=== PATIENT | female | born 1950 | race Caucasian/White ===

== ENCOUNTER 2019-05-01 19:40 | Inpatient (IN) | payer OTHER ==
[~2019-05-01] VITALS: Ht 162.6 cm; Wt 102.7 kg
[~2019-05-01 19:40] MED LIST: ACET325 PO; ALBU90I INH; ALIS150T PO; ALPR.5 PO; AMIO200 PO; ASCO1ER PO; ASCO500 PO; ASPI325 PO; ASPI325EC PO; ATOR10 PO; ATOR80 PO; AZIT250; BUME2 PO; Bumetanide1 MG PO; CALC.25 PO; CALCAVITD PO; CALCIT950; CALCIT950 PO; CALCIUM CITRATE; CAPT12.5 PO; CEPH500 PO; CHOL10002 PO; CIPR500 PO; CITA20 PO; CLOP75 PO; CYCL10 PO; Coumadin3 MG PO; Coumadin5 MG PO; DIGOX125 MCG PO; DILT60 PO; DIPH50 PO; DOCU100 PO; DRON400T PO; Desyrel50 MG; EZET10; FERR160 PO; FLUO20 PO; FURO20 PO; FURO40 PO; Ferrous Sulfat325 M2 PO; GLIP5 PO; HYDACE10B PO; HYDACE5 PO; HYDACE5325 PO; HYDCHL12.5 PO; INSDET100; IRON150C PO; LEVFLO500 PO; LOPE2C PO; LOSA50 PO; LOVA40 PO; Lomotil Tablet1 EACH PO; Lyrica225 MG PO; MAGOXI400 PO; METF500 PO; METF500C PO; METH10 PO; METH5 PO; METO50 PO; METO50ER PO; MULTI VITAMIN1 EACH PO; MULTIVITAMIN; MULVITB&C PO; NITR.4SL SL; NITR.6SL SL; NORT25 PO; OLME20 PO; OMEP20ER PO; ONDA4ODT MM; OXYACE5T PO; OXYC1TAB11 PO; OXYC5; OXYC5 PO; Oxycontin20 MG PO; PANT40 PO; POTCHL10ER PO; PRED20 PO; PREG100 PO; PROACE100 PO; PROP120ER; PROP80 PO; Percocet 10-321 EACH PO; RANI150 PO; ROSU10TA; RXHYDACE PO; RXOXYACE PO; RXPROACE PO; SITA100T2 PO; Seroquel50 MG PO; Super B Comple150 MG PO; TELM80; TELM80 PO; TRIA80TC TOP; VIIBRYD40 MG PO; VILAZODONE 40 MG; VITAMIN D31 ML; VITB100; WARF1 PO; WARF4 PO; WARF5 PO; [UNRECOGNIZED DRUG - OTHER]
[2019-05-01 20:14] LABS: BASOPHILS ABSOLUTE AUTO 0.02 K/mm3 (0.00-0.23); BASOPHILS PERCENT AUTO 0 % (0-2); EOSINOPHILS ABSOLUTE AUTO 0.04 K/mm3 (0.00-0.68); EOSINOPHILS PERCENT AUTO 1 % (0-6); Hematocrit 44.1 % (33.0-51.0); Hemoglobin 14.2 g/dL (11.5-16.0); IMMATURE GRAN ABSOLUTE AUTO 0.03 K/mm3 (0.00-0.10); IMMATURE GRAN PERCENT AUTO 0 % (0-1); LYMPHOCYTES ABSOLUTE AUTO 0.33 K/mm3 (0.84-5.20); LYMPHOCYTES PERCENT AUTO 4 % (21-46); MONOCYTES ABSOLUTE AUTO 0.44 K/mm3 (0.16-1.47); MONOCYTES PERCENT AUTO 6 % (4-13); Mean Corpuscular HGB 28.7 pg (26.0-34.0); Mean Corpuscular HGB Conc 32.2 g/dL (31.5-36.5); Mean Corpuscular Volume 89 fL (80-100); Mean Platelet Volume 10.8 fL (9.1-12.4); NEUTROPHILS ABSOLUTE AUTO 6.58 K/mm3 (1.96-9.15); NEUTROPHILS PERCENT AUTO 89 % (41-73); Platelet Count 147 K/mm3 (150-400); RDW Coefficient Variation 13.2 % (11.7-14.2); RDW Standard Deviation 43.2 fL (35.1-46.3); Red Blood Cell Count 4.95 M/mm3 (3.80-5.20); White Blood Cell Count 7.44 K/mm3 (4.00-11.30)
[2019-05-01 20:27] LABS: Albumin, Blood 3.6 g/dL (3.4-5.0); Albumin/Globulin Ratio 0.8 (0.8-1.8); Bun/Creatinine Ratio 22.5 (12.0-20.0); Calcium, Blood 8.6 mg/dL (8.5-10.1); Creatinine, Blood 1.11 mg/dL (0.40-1.00); Globulin, Blood 4.5 g/dL (2.2-4.0); Potassium, Blood 4.2 mmol/L (3.5-5.5); Total Protein, Blood 8.1 g/dL (6.4-8.2)
[2019-05-01 20:30] LABS: International Normalized Ratio 1.81; Prothrombin Time Results 18.2 Sec (9.7-11.5)
[2019-05-01 21:41] LABS: Source, Urine Catheter
[2019-05-01 21:46] LABS: Bilirubin, Urine Neg (Neg); Blood, Urine Neg (Neg); Glucose Qualitative, Urine Neg (Neg); Ketones, Urine Neg (Neg); Leukocyte Esterase, Urine 1+ (Neg); Nitrite, Urine Neg (Neg); Protein, Urine 1+ (Neg); Urobilinogen, Urine 2+ (Normal)
[2019-05-01 21:54] LABS: Appearance, Urine Clear (Clear); Color, Urine Yellow (P-Yellow)
[2019-05-01 21:57] LABS: Bacteria Few /hpf; Red Blood Cells, Urine 0-2 /hpf (0-2); Squamous Epithelial Cells Mod /hpf (Few)
[2019-05-01 22:44] LABS: Digoxin (Lanoxin) 0.81 ug/mL (0.80-2.00)
--- NOTE | 2019-05-02 02:00 | NUR ---
ADMIT/ASSESSMENT PT ADMITTED VIA ER TO ICU 15. ARRIVED VIA GURNEY. AWAKE, A&O. TRANSFERED TO BED BY STAFF WITH SLIDER SHEET. PT DENEIS PAIN OR DISCOMFORT. TO BEDSIDE. PT ANSWERING QUESTIONS APPROP. JUANEW. SKIN WARM, TEMP 102.0. LUNGS CLEAR BUT DECREASED IN THE BASES ON 10 LITERS O2 VIA OXMIZER. HEART RATE IRREGULAR-AFIB. PT HAS A PACEMAKER. EDEMA NOTED TO BILAT LOWER EXT. BT+ ABD SOFT AND NONTENDER. DENIES N/V. PT STATES,"I WANT SOMTHING TO DRINK". EXPLAINED NPO. IV 20G TO LEFT AC SALINE LOCKED, SITE CLEAR. IV 20G TO RIGHT FOREARM SALINE LOCKED, SITE CLEAR. MONTENEGRO CATH PATENT DRAINING DARK YELLOW URINE. PT MOVING SELF AROUND IN BED. SCD'S APPLIED.
[2019-05-02] MEDS ORDERED: QUET100 PO (02:19)
[2019-05-02 02:52] LABS: U Amphetamine Screen Not Detected; U Barbituate Screen Not Detected; U Benzodiazapine Screen Not Detected; U Buprenorphine Screen Not Detected; U Cannabinoids Screen Not Detected; U Cocaine Screen Not Detected; U Methadone Screen Not Detected; U Methamphetamine Screen Not Detected; U Opiates Screen Not Detected; U Oxycodone Screen DETECTED; U Phencyclidine Screen Not Detected; U Propoxyphene Screen Not Detected
[2019-05-02 03:35] LABS: Hematocrit 42.3 % (33.0-51.0); Hemoglobin 13.2 g/dL (11.5-16.0); Mean Corpuscular HGB 28.1 pg (26.0-34.0); Mean Corpuscular HGB Conc 31.2 g/dL (31.5-36.5); Mean Corpuscular Volume 90 fL (80-100); Mean Platelet Volume 10.7 fL (9.1-12.4); Platelet Count 138 K/mm3 (150-400); RDW Coefficient Variation 13.5 % (11.7-14.2); RDW Standard Deviation 44.1 fL (35.1-46.3); Red Blood Cell Count 4.69 M/mm3 (3.80-5.20); White Blood Cell Count 10.85 K/mm3 (4.00-11.30)
--- NOTE | 2019-05-02 03:49 | NUR ---
PT REFUSING BIPAP. RT DECREASED O2 VIA OXMIZER TO 8 LITERS
[2019-05-02 03:53] LABS: International Normalized Ratio 1.97; Prothrombin Time Results 19.6 Sec (9.7-11.5)
[2019-05-02 03:55] LABS: Albumin/Globulin Ratio 0.8 (0.8-1.8); Bilirubin, Total 1.7 mg/dL (0.1-1.0); Bun/Creatinine Ratio 20.7 (12.0-20.0); Calcium, Blood 8.1 mg/dL (8.5-10.1); Creatinine, Blood 1.11 mg/dL (0.40-1.00); Globulin, Blood 3.9 g/dL (2.2-4.0); Potassium, Blood 4.2 mmol/L (3.5-5.5); Total Protein, Blood 6.9 g/dL (6.4-8.2)
[2019-05-02 04:09] LABS: BAND PERCENT MAN 15 % (0-8); BASOPHILS PERCENT MAN 0 % (0-2); EOSINOPHILS PERCENT MAN 0 % (0-6); LYMPHOCYTES ABSOLUTE MAN 0.32 K/mm3 (0.84-5.20); LYMPHOCYTES PERCENT MAN 3 % (21-46); METAMYELOCYTE PERCENT MAN 1 % (0-0); MONOCYTES ABSOLUTE MAN 0.75 K/mm3 (0.16-1.47); MONOCYTES PERCENT MAN 7 % (4-13); NEUTROPHILS ABSOLUTE MAN 9.65 K/mm3 (1.96-9.15); SEG NEUTROPHILS PERCENT MAN 74 % (41-73); TOTAL CELLS COUNTED 100
--- NOTE | 2019-05-02 06:21 | NUR ---
SHIFT SUMMARY PT ADMITTED DURING THE NIGHT. REFUSING BIPAP ON 8 LITER O2 VIA OXMIZER. RESP EVEN AND NONLABORED. RECEIVED ONE LITER BOLUS HERE IN THE ICU. NOW ON NS AT 100 ML/HR. MOVING SELF AROUND IN BED. TMAX WAS 102.0 NOW DOWN TO 100.8 AFTER TYLENOL. REPORT TO ON COMING NURSE
[2019-05-02 06:48] LABS: Adenovirus Not Detected (NOT DETECT); Bordetella pertussis Not Detected (NOT DETECT); Chlamydophila pneumoniae Not Detected (NOT DETECT); Coronavirus 229E Not Detected (NOT DETECT); Coronavirus HKU1 Not Detected (NOT DETECT); Coronavirus NL63 Not Detected (NOT DETECT); Coronavirus OC43 Not Detected (NOT DETECT); Human Metapneumovirus Not Detected (NOT DETECT); Human Rhinovirus/Enterovirus Not Detected (NOT DETECT); Influenza A Not Detected (NOT DETECT); Influenza A/2009-H1 Not Detected (NOT DETECT); Influenza A/H1 Not Detected (NOT DETECT); Influenza A/H3 Not Detected (NOT DETECT); Influenza B Not Detected (NOT DETECT); Mycoplasma pneumoniae Not Detected (NOT DETECT); Parainfluenza Virus 1 Not Detected (NOT DETECT); Parainfluenza Virus 2 Not Detected (NOT DETECT); Parainfluenza Virus 3 Not Detected (NOT DETECT); Parainfluenza Virus 4 Not Detected (NOT DETECT); Respiratory Syncytial Virus Not Detected (NOT DETECT)
--- NOTE | 2019-05-02 07:15 | NUR ---
START OF SHIFT NOTE: RECEIVED REPORT FROM JOAN BOGGS RN, ASSUMED CARE, PATIENT IS AWAKE, ALERT AND ORIENTED, ON 7L OXIMYZER SATING AT 96 %, PATIENT IS IN A-FIB WITH OCCASIONAL PACER SPIKES, PATIENT HAS A PPM, LUNG SOUNDS ARE DIMINISHED AND CONGESTED, BOWEL TONES ARE HYPOACTIVE, MONTENEGRO CATHETER WITH TEMP PROBE IN PLACE, PATIENT DENIES PAIN, REPORTS NO CHEST PAIN/DISCOMFORT OF SOB AT THIS TIME, CALL LIGHT IN REACH, WILL CONTINUE TO MONITOR.
--- NOTE | 2019-05-02 08:25 | NUR ---
DR. ZHOU IN TO SEE PATIENT, NEW ORDERS RECEIVED.
--- NOTE | 2019-05-02 09:30 | NUR ---
VISITOR AT BEDSIDE, PATIENT IS RESTING COMFORTABLY, NO NEEDS IDENTIFIED AT THIS TIME, CALL LIGHT IN REACH, WILL CONTINUE TO MONITOR.
--- NOTE | 2019-05-02 13:21 | NUR ---
PATIENT IS SLEEPING AT THIS TIME, AT BEDSIDE, ALSO APPEARS TO TAKE A NAP, CALL LIGHT IN REACH, WILL CONTINUE TO MONITOR.
--- NOTE | 2019-05-02 14:19 | NUR ---
ATTEMPTED TO CALL REPORT TO PCU, SPOKE WITH UVALDO HOPPER, PAINT MAKER, SHE STATED THAT "SHE WILL HAVE MAYTE OATES CALL ME FOR REPORT".
--- NOTE | 2019-05-02 14:33 | NUR ---
REPORT CALLED TO MAYTE OATES RN, PCU, PATIENT WILL BE TRANSFERRED TO PCU ROOM 6 VIA WHEELCHAIR WITH ALL BELONGINGS AND MEDICATIONS.
--- NOTE | 2019-05-02 18:17 | NUR ---
SHIFT SUMMARY PT WAS TRANSFERRED THIS AFTERNOON TO [place] FROM ICU. UPON ARRIVAL PT HAD AN SP02 100% ON 7L OXYMIZER. I WAS ABLE TO WEAN PT DOWN TO 3L OXYMIZER TO MAINTAIN SP02 >92%. ALSO UPON ARRIVAL, PT HAD A LARGE, HARD BOWEL MOVEMENT. PT REMAINS A-FIB ON TELEMETRY. VITALS HAVE BEEN STABLE AND PT HAS BEEN ALERT AND ORIENTED FOR ME.
--- NOTE | 2019-05-02 23:57 | NUR ---
ASSUMED CARE OF PATIENT AT APPROXIMATELY 1910 FROM NARCISA Gustafson RN. PATIENT ALERT AND ORIENTED X4; SLOW TO RESPOND AT TIMES. PATIENT DENIES PAIN, NUMBNESS, TINGLING, DIZZINESS OR NAUSEA. PATIENT REPOSISTIONS SELF IN BED; HAS NOT AMBULATED THIS SHIFT. AFIB W/ PACED ON TELE; OXYGEN SATURATION ABOVE 90% ON 1-2LPM VIA NC; SWITCHED FROM OXYMIZER. PATIENT REFUSES CPAP; REPORTS SHE WAS SUPPPOSE TO WEAR ONE AT HOME. PATIENT REPORTS LARGE HARD BM BEFORE SHIFT CHANGE; NO ORDERS FOR COLACE; DISCUSSED WITH PATIENT; CALLED ANGEL CAMPOVERDE; ORDERS RECIEVED. PIV S/L. SLEEPING IN RECLINER BEDSIDE. PATIENT CURRENTLY RESTING IN BED; CALL LIGHT IN REACH; BED IN LOWEST POSISTION; BED ALARM ON; WILL CONTINUE TO MONITOR AND ASSESS UNTIL END OF SHIFT.
[2019-05-03 04:00] LABS: Albumin, Blood 2.7 g/dL (3.4-5.0); Albumin/Globulin Ratio 0.7 (0.8-1.8); Bilirubin, Total 1.9 mg/dL (0.1-1.0); Bun/Creatinine Ratio 17.9 (12.0-20.0); Calcium, Blood 8.3 mg/dL (8.5-10.1); Creatinine, Blood 1.06 mg/dL (0.40-1.00); Globulin, Blood 3.7 g/dL (2.2-4.0); Potassium, Blood 4.3 mmol/L (3.5-5.5); Total Protein, Blood 6.4 g/dL (6.4-8.2)
[2019-05-03 04:05] LABS: International Normalized Ratio 2.08; Prothrombin Time Results 20.6 Sec (9.7-11.5)
--- NOTE | 2019-05-03 06:16 | NUR ---
PATIENT TITRATED DOWN TO 1LPM VIA NC; TRIED TRIAL WITH NO OXYGEN; DROPS TO HIGH 80 (~85%) AND BOUNCES QUICKLY BACK UP TO 90-92%; PATIENT REPORTS "THIS HAPPENED TO ME BEFORE"; "I WAS IN THE HOSPITAL FOR FIVE DAYS". VSS. PATIENT SLEPT ABOUT EIGHT HOURS LAST NIGHT; STAYED BEDSIDE. HEART RATE TRENDING AT 100. WILL CONTINUE TO MONITOR AND ASSESS UNTIL END OF SHIFT.
--- NOTE | 2019-05-03 13:17 | NUR ---
PT TRANSFERRED TO ROOM 355. REPORT CALLED TO HARRY BENITO. ALL QUESTIONS ANSWERED. BELONGINGS GATHERED AND SENT WITH PT AND . PT SPECIFIC MEDS GATHERED AND PLACED IN GREEN MEDICINE BAG WITH CHART. PT LEFT THE DEPARTMENT VIA W/C ON ROOM AIR, ESCORTED BY PCT AND FAMILY.
--- NOTE | 2019-05-03 17:08 | NUR ---
PATIENT IS ALERT AND ORIENTED AND COOPERATIVE WITH CARE. SHE CALLS APPROPRIATELY. SHE TRANSFERRED TO MEDICAL FROM PCU TODAY. FAMILY IS AT THE BEDSIDE. NO COMPLAINTS OF FEVER. SHE AMBULATES TO THE BATHROOM WITH SBA. WILL CONTINUE TO MONITOR.
--- NOTE | 2019-05-04 04:49 | NUR ---
SHIFT SUMMARY PT HAS DONE WELL THIS SHIFT. THERE HAVE BEEN NO ACUTE CHANGES, PT IS ALERT AND ORIENTED X4. PT GIVEN LASIKS YESTERDAY EVENING AND HAS BEEN VOIDING. PT DENIES PAIN OR NEEDS FOR MOST OF THE NIGHT. VITALS STABLE. PT SPOUSE AT BEDSIDE T/O THE NIGHT. BED IN LOWEST POSITION, CALL LIGHT WITHIN REACH. WILL CONTINUE TO MONITOR AND REPORT TO ONCOMING RN.
[2019-05-04 05:09] LABS: International Normalized Ratio 1.61; Prothrombin Time Results 16.3 Sec (9.7-11.5)
[2019-05-04 05:21] LABS: Anion Gap 6 mmol/L (6-16); Blood Urea Nitrogen 17 mg/dL (8-24); Bun/Creatinine Ratio 21.5 (12.0-20.0); CO2, Blood 31 mmol/L (21-32); Calcium, Blood 8.6 mg/dL (8.5-10.1); Chloride, Blood 102 mmol/L (98-108); Creatinine, Blood 0.79 mg/dL (0.40-1.00); Glomerular Filtration Rate >60 (60-); Glucose, Blood 149 mg/dL (70-99); Potassium, Blood 3.6 mmol/L (3.5-5.5); Sodium, Blood 139 mmol/L (136-145)
[2019-05-04] MEDS ORDERED: Vsl#3 Capsule1 EACH PO (11:06)
[2019-05-04] MEDS ORDERED: METF500 PO (11:07)
[2019-05-04] MEDS ORDERED: TORSE20 PO (11:08)
[2019-05-04] MEDS ORDERED: LEVFLO500 PO (11:09)
[2019-05-04] MEDS ORDERED: POTA10T PO (11:09)
--- NOTE | 2019-05-04 13:04 | NUR ---
Shift Summary A/O x 4, pleasant and cooperative with care. Pt discharging to home via personal vehicle. Reviewed discharge papers and provided educational materials to patient and . IV removed, WNL. Meds faxed to preferred pharmacy, personal belongings sent home. Escorted by BODY CLEANER via w/c.
== END 2019-05-04 12:15 | disposition home or self-care (01) | DRG 871 ==
LOC: ER 19:40 → ICUW 05-02 01:42 → PCU 05-02 14:53 → MEDS 05-03 13:30 → ENPENDDIS 05-04 10:03 → MEDS 05-04 12:15
PROVIDERS: Emergency Medicine; Internal Medicine; Nurse Practitioner Acute Care; ADMIT Internal Medicine
PROC: 5A09357 Assistance with Respiratory Ventilation, Less than 24 Consecutive Hours, Continuous Positive Airway Pressure (ICD-10-PCS; principal; 2019-05-02)
DX: A41.9 Sepsis, unspecified organism (principal); J18.9 Pneumonia, unspecified organism; G92 Toxic encephalopathy; J96.01 Acute respiratory failure with hypoxia; I50.33 Acute on chronic diastolic (congestive) heart failure; J44.0 Chronic obstructive pulmonary disease with (acute) lower respiratory infection; R65.20 Severe sepsis without septic shock; I11.0 Hypertensive heart disease with heart failure; I48.91 Unspecified atrial fibrillation; E11.9 Type 2 diabetes mellitus without complications; G47.33 Obstructive sleep apnea (adult) (pediatric); Z88.0 Allergy status to penicillin; Z98.84 Bariatric surgery status; Z79.01 Long term (current) use of anticoagulants; K80.20 Calculus of gallbladder without cholecystitis without obstruction; K76.0 Fatty (change of) liver, not elsewhere classified; Z91.19 Patient's noncompliance with other medical treatment and regimen; E78.5 Hyperlipidemia, unspecified; Z95.0 Presence of cardiac pacemaker; Z87.891 Personal history of nicotine dependence
CPT/HCPCS: 0099U; 36415; 51702; 70450; 71045; 76705; 80048; 80053; 80162; 81001; 82947; 83036; 83605; 83880; 85025; 85610; 85730; 87040; 87081; 87086; 93005; 93010; 94660; 94762; 96361-59; 96365-59; 96375-59; 96376-59; 99285-25; A9270; C9113; J0696; J1940; J7030; P9612

== ENCOUNTER 2020-04-06 16:25 | Observation (INO) | payer OTHER ==
[~2020-04-06] VITALS: Ht 165.1 cm; Wt 113.6 kg
[~2020-04-06 16:25] MED LIST changes: -CALC.25 PO; -DIGOX125 MCG PO; -Lyrica225 MG PO; -PANT40 PO; +QUET100 PO; +Vsl#3 Capsule1 EACH PO
[2020-04-06 17:09] LABS: BASOPHILS ABSOLUTE AUTO 0.03 K/mm3 (0.00-0.23); BASOPHILS PERCENT AUTO 0 % (0-2); EOSINOPHILS PERCENT AUTO 1 % (0-6); Hematocrit 32.7 % (33.0-51.0); Hemoglobin 10.3 g/dL (11.5-16.0); IMMATURE GRAN ABSOLUTE AUTO 0.12 K/mm3 (0.00-0.10); IMMATURE GRAN PERCENT AUTO 2 % (0-1); LYMPHOCYTES ABSOLUTE AUTO 0.55 K/mm3 (0.84-5.20); LYMPHOCYTES PERCENT AUTO 7 % (21-46); MONOCYTES ABSOLUTE AUTO 0.41 K/mm3 (0.16-1.47); MONOCYTES PERCENT AUTO 6 % (4-13); Mean Corpuscular HGB 28.4 pg (26.0-34.0); Mean Corpuscular HGB Conc 31.5 g/dL (31.5-36.5); Mean Corpuscular Volume 90 fL (80-100); NEUTROPHILS ABSOLUTE AUTO 6.25 K/mm3 (1.96-9.15); NEUTROPHILS PERCENT AUTO 84 % (41-73); Platelet Count 293 K/mm3 (150-400); RDW Standard Deviation 48.8 fL (35.1-46.3); Red Blood Cell Count 3.63 M/mm3 (3.80-5.20); White Blood Cell Count 7.46 K/mm3 (4.00-11.30)
[2020-04-06 17:23] LABS: International Normalized Ratio 1.43
[2020-04-06 17:31] LABS: Alanine Aminotransfer (ALT/SGP 47 U/L (12-78); Albumin, Blood 2.9 g/dL (3.4-5.0); Albumin/Globulin Ratio 0.7 (0.8-1.8); Alk Phos 417 U/L (50-136); Anion Gap 5 mmol/L (6-16); Aspartate Aminotrans (AST/SGOT 67 U/L (12-37); Bilirubin, Total 1.7 mg/dL (0.1-1.0); Blood Urea Nitrogen 10 mg/dL (8-24); Bun/Creatinine Ratio 14.6 (12.0-20.0); CO2, Blood 30 mmol/L (21-32); Calcium, Blood 8.8 mg/dL (8.5-10.1); Chloride, Blood 107 mmol/L (98-108); Creatinine, Blood 0.69 mg/dL (0.40-1.00); Globulin, Blood 3.9 g/dL (2.2-4.0); Glomerular Filtration Rate >60 (60-); Glucose, Blood 176 mg/dL (70-99); Potassium, Blood 4.7 mmol/L (3.5-5.5); Sodium, Blood 142 mmol/L (136-145); Total Protein, Blood 6.8 g/dL (6.4-8.2); Troponin I <0.015 ng/mL (0.000-0.040)
[2020-04-06] MEDS ORDERED: METF500 PO (20:59)
[2020-04-06] MEDS ORDERED: METO100 PO (21:00)
[2020-04-06] MEDS ORDERED: PAXIL40 M1 PO (21:01)
[2020-04-06] MEDS ORDERED: WARF5 PO (21:01)
[2020-04-06] MEDS ORDERED: PREG300 PO (21:02)
[2020-04-06] MEDS ORDERED: ATOR40TA PO (21:04)
[2020-04-06] MEDS ORDERED: Amaryl1 MG PO (21:04)
[2020-04-06] MEDS ORDERED: DIGOX125 MCG PO (21:06)
[2020-04-06] MEDS ORDERED: TORSE20 PO (21:06)
[2020-04-06] MEDS ORDERED: CALC.25 PO (21:07)
[2020-04-06] MEDS ORDERED: POTA10T PO (21:07)
[2020-04-06] MEDS ORDERED: PANT40 PO (21:08)
--- NOTE | 2020-04-07 00:11 | NUR ---
transfer report from [facility] on 69 year old Female being admitted with fluid overload hypoxia & Afib. neg ct pul angiogram, bnp elevated. hx chf afib low inr. SP recent cholecystectomy last Sat & rt knee replacement end of Feb 2020. 03/28/20 had ecoli in blood culture. Has dual lead pacemaker in place. Will be full code on tele monitor. Reoported on 2 l nc & has pur wick female external cath in place after diuretics given. Await admission.
--- NOTE | 2020-04-07 03:39 | NUR ---
DR RO called to request PT's home med list reconsilation. He verbalizes to resume current home med list. Await MD orders for home rx list. PT specifically asking for lyrica 300 mg po missed HS Dose.
[2020-04-07 05:17] LABS: BASOPHILS ABSOLUTE AUTO 0.03 K/mm3 (0.00-0.23); BASOPHILS PERCENT AUTO 1 % (0-2); EOSINOPHILS ABSOLUTE AUTO 0.08 K/mm3 (0.00-0.68); EOSINOPHILS PERCENT AUTO 2 % (0-6); Hematocrit 31.7 % (33.0-51.0); Hemoglobin 9.9 g/dL (11.5-16.0); IMMATURE GRAN ABSOLUTE AUTO 0.09 K/mm3 (0.00-0.10); IMMATURE GRAN PERCENT AUTO 2 % (0-1); LYMPHOCYTES ABSOLUTE AUTO 0.57 K/mm3 (0.84-5.20); LYMPHOCYTES PERCENT AUTO 11 % (21-46); MONOCYTES ABSOLUTE AUTO 0.41 K/mm3 (0.16-1.47); MONOCYTES PERCENT AUTO 8 % (4-13); Mean Corpuscular HGB 28.1 pg (26.0-34.0); Mean Corpuscular HGB Conc 31.2 g/dL (31.5-36.5); Mean Corpuscular Volume 90 fL (80-100); Mean Platelet Volume 10.2 fL (9.1-12.4); NEUTROPHILS ABSOLUTE AUTO 4.01 K/mm3 (1.96-9.15); NEUTROPHILS PERCENT AUTO 77 % (41-73); Platelet Count 277 K/mm3 (150-400); RDW Standard Deviation 48.3 fL (35.1-46.3); Red Blood Cell Count 3.52 M/mm3 (3.80-5.20); White Blood Cell Count 5.19 K/mm3 (4.00-11.30)
[2020-04-07 05:50] LABS: Alanine Aminotransfer (ALT/SGP 40 U/L (12-78); Albumin, Blood 2.9 g/dL (3.4-5.0); Albumin/Globulin Ratio 0.8 (0.8-1.8); Alk Phos 364 U/L (50-136); Anion Gap 5 mmol/L (6-16); Aspartate Aminotrans (AST/SGOT 27 U/L (12-37); Bilirubin, Total 1.5 mg/dL (0.1-1.0); Blood Urea Nitrogen 11 mg/dL (8-24); Bun/Creatinine Ratio 15.6 (12.0-20.0); CO2, Blood 34 mmol/L (21-32); Calcium, Blood 8.8 mg/dL (8.5-10.1); Chloride, Blood 101 mmol/L (98-108); Globulin, Blood 3.7 g/dL (2.2-4.0); Glomerular Filtration Rate >60 (60-); Glucose, Blood 175 mg/dL (70-99); Sodium, Blood 140 mmol/L (136-145); Total Protein, Blood 6.6 g/dL (6.4-8.2)
[2020-04-07 06:44] LABS: Digoxin (Lanoxin) 0.67 ug/mL (0.80-2.00)
--- NOTE | 2020-04-07 06:44 | NUR ---
PT up to BSC this AM to void & needed moderate assist & FWW to mobilize, Needs cues for safe mobility. PT drank water has cardiac diet ordered for BF. Drained over 1250 ml via external female cath. PT has chronic neropathic pain on lyrica to tx. ROCCO RO RX PT's home meds to begin this AM.
[2020-04-07] MEDS ORDERED: ROXICODONE5 MG PO (08:39)
--- NOTE | 2020-04-07 12:45 | NUR ---
PT PACEMAKER CHECKED PER HOSPITALIST ORDER, PRINTOUT PLACED IN FRONT OF CHART, WILL ROUTE REPORT THRU PACEDAYANARA/BRENA TO DR CAMARGO
[2020-04-07 13:27] LABS: Source, Urine Catheter
[2020-04-07 13:30] LABS: Appearance, Urine Clear (Clear); Bilirubin, Urine Neg (Neg); Blood, Urine Neg (Neg); Color, Urine Yellow (P-Yellow); Glucose Qualitative, Urine Neg (Neg); Ketones, Urine Neg (Neg); Leukocyte Esterase, Urine Neg (Neg); Nitrite, Urine Neg (Neg); Protein, Urine Neg (Neg); Specific Gravity, Urine 1.005 (1.003-1.022); Urobilinogen, Urine NORM (Normal)
--- NOTE | 2020-04-07 16:47 | NUR ---
SHIFT SUMMARY- PT A/OX4, PT UP TO CHAIR WITH 1 ASSIST. LS CLEAR, ON 2L N/C. SOB WITH EXERTION AND OCCASIONAL NPC. COVID NEGATIVE. TELE AFIB AT 95, PACER INTERROGATED TODAY. MONTENEGRO PLACED PER DR JAIN FOR STRICT I&O. PT WITH RECENT RIGHT KNEE REPLACEMENT AND CHOLECYSTECTOMY, SITES C/D/I. NO OTHER ACUTE CHANGES THIS SHIFT.
--- NOTE | 2020-04-08 03:50 | NUR ---
69 year old Female with pacemaker dual chamber, afib partially paced had 2 recent surgeries & was off anticoagulant to control afib. INR was subtheraputic & PT was fluid overloaded & had hypoxia, with dyspnea. PT had rt total knee replacement 03/22/20 & lap rm 04/03/2020. PT had poor mobility s/p rt knee replacement due to cholecystitis & positive blood culture with ecoli growth on 03/28/2020. PT recieving IV diuretics & Hospitalist had ordered wallace cath to facilitate diuresis. Chronic neuropathic pain on high dose lyrica 300 mg po BID with helpful effect, denies operative site pains in abd or rt knee. Has PT eval ordered had PT ordered but unable to start due to illness with rm following. Up to chair for dinner, has HS snack. Has supportive Spouse. Pacemaker interrogated & reprogrammed yesterday report in chart. Tele monitor shows intermittant pacing.
[2020-04-08 05:22] LABS: BASOPHILS ABSOLUTE AUTO 0.03 K/mm3 (0.00-0.23); BASOPHILS PERCENT AUTO 1 % (0-2); EOSINOPHILS ABSOLUTE AUTO 0.17 K/mm3 (0.00-0.68); EOSINOPHILS PERCENT AUTO 4 % (0-6); Hematocrit 32.7 % (33.0-51.0); Hemoglobin 9.9 g/dL (11.5-16.0); IMMATURE GRAN ABSOLUTE AUTO 0.04 K/mm3 (0.00-0.10); IMMATURE GRAN PERCENT AUTO 1 % (0-1); LYMPHOCYTES ABSOLUTE AUTO 0.69 K/mm3 (0.84-5.20); LYMPHOCYTES PERCENT AUTO 15 % (21-46); MONOCYTES ABSOLUTE AUTO 0.47 K/mm3 (0.16-1.47); MONOCYTES PERCENT AUTO 10 % (4-13); Mean Corpuscular HGB 27.7 pg (26.0-34.0); Mean Corpuscular HGB Conc 30.3 g/dL (31.5-36.5); Mean Corpuscular Volume 91 fL (80-100); Mean Platelet Volume 10.4 fL (9.1-12.4); NEUTROPHILS ABSOLUTE AUTO 3.23 K/mm3 (1.96-9.15); NEUTROPHILS PERCENT AUTO 70 % (41-73); Platelet Count 289 K/mm3 (150-400); RDW Coefficient Variation 14.8 % (11.7-14.2); RDW Standard Deviation 49.1 fL (35.1-46.3); Red Blood Cell Count 3.58 M/mm3 (3.80-5.20); White Blood Cell Count 4.63 K/mm3 (4.00-11.30)
[2020-04-08 05:24] LABS: International Normalized Ratio 1.23
[2020-04-08 05:32] LABS: Anion Gap 2 mmol/L (6-16); Blood Urea Nitrogen 16 mg/dL (8-24); Bun/Creatinine Ratio 21.1 (12.0-20.0); CO2, Blood 36 mmol/L (21-32); Chloride, Blood 102 mmol/L (98-108); Creatinine, Blood 0.76 mg/dL (0.40-1.00); Glomerular Filtration Rate >60 (60-); Glucose, Blood 158 mg/dL (70-99); Potassium, Blood 4.1 mmol/L (3.5-5.5); Sodium, Blood 140 mmol/L (136-145)
--- NOTE | 2020-04-08 13:12 | NUR ---
DISCHARGE INSTRUCTIONS REVIEWED WITH PT AND SPOUSE. IV DC'D AND MONTENEGRO DC'D BY RN STUDENT. NO NEW PRESCRIPTIONS. PT HAS AN APPT WITH OUTPATIENT THERAPY TOMORROW AND SCHEDULED APPT WITH PCP ON THE . AWAITING PT TO VOID POST MONTENEGRO DC AT THIS TIME.
--- NOTE | 2020-04-08 13:13 | NUR ---
PT GAVE STUDENT NURSE PERMISSION FOR CARE ON 04/08/20 AT 1250.
--- NOTE | 2020-04-08 13:48 | NUR ---
PT DC'D HOME WITH SPOUSE AT 1336, ESCORTED OUT VIA W/C.
== END 2020-04-08 13:36 | disposition home or self-care (01) ==
LOC: ER 16:25 → MEDS 16:26
PROVIDERS: Internal Medicine; Physician Assistant; ADMIT Internal Medicine
DX: I11.0 Hypertensive heart disease with heart failure (principal); I50.33 Acute on chronic diastolic (congestive) heart failure; J96.01 Acute respiratory failure with hypoxia; I48.91 Unspecified atrial fibrillation; E11.9 Type 2 diabetes mellitus without complications; E78.5 Hyperlipidemia, unspecified; M54.9 Dorsalgia, unspecified; J44.9 Chronic obstructive pulmonary disease, unspecified; M19.90 Unspecified osteoarthritis, unspecified site; G47.33 Obstructive sleep apnea (adult) (pediatric); Z88.0 Allergy status to penicillin; Z88.1 Allergy status to other antibiotic agents; Z87.891 Personal history of nicotine dependence; Z95.0 Presence of cardiac pacemaker; Z90.49 Acquired absence of other specified parts of digestive tract; Z88.8 Allergy status to other drugs, medicaments and biological substances; Z79.01 Long term (current) use of anticoagulants; Z79.84 Long term (current) use of oral hypoglycemic drugs; Z79.899 Other long term (current) drug therapy; Z20.828 Contact with and (suspected) exposure to other viral communicable diseases; Z23 Encounter for immunization
CPT/HCPCS: 36415; 51702; 71046; 71260; 80048; 80053; 80162; 81003; 83690; 83880; 84484; 85025; 85610; 93005; 93010; 93280; 93306; 93971; 94640; 96372; 96374-59; 96376; 97110; 97116; 97162; 99285-25; A9270-GY; G0378; J1650; J1940; Q9967; U0004

== ENCOUNTER 2020-07-31 17:46 | Inpatient (IN) | payer OTHER, MEDICARE ==
[~2020-07-31] VITALS: Ht 157.5 cm; Wt 111.7 kg
[~2020-07-31 17:46] MED LIST changes: +ATOR40TA PO; +Amaryl1 MG PO; +CALC.25 PO; +LANOXIN125 MCG PO; +METO100 PO; +PANT40 PO; +PAXIL40 M1 PO; +POTA10T PO; +PREG300 PO; +ROXICODONE5 MG PO; +TORSE20 PO
[2020-07-31 18:38] LABS: BASOPHILS ABSOLUTE AUTO 0.03 K/mm3 (0.00-0.23); BASOPHILS PERCENT AUTO 0 % (0-2); EOSINOPHILS ABSOLUTE AUTO 0.04 K/mm3 (0.00-0.68); EOSINOPHILS PERCENT AUTO 0 % (0-6); Hematocrit 37.8 % (33.0-51.0); Hemoglobin 12.1 g/dL (11.5-16.0); IMMATURE GRAN ABSOLUTE AUTO 0.04 K/mm3 (0.00-0.10); IMMATURE GRAN PERCENT AUTO 0 % (0-1); LYMPHOCYTES ABSOLUTE AUTO 0.95 K/mm3 (0.84-5.20); LYMPHOCYTES PERCENT AUTO 10 % (21-46); MONOCYTES ABSOLUTE AUTO 0.68 K/mm3 (0.16-1.47); MONOCYTES PERCENT AUTO 7 % (4-13); Mean Corpuscular HGB 27.9 pg (26.0-34.0); Mean Corpuscular Volume 87 fL (80-100); Mean Platelet Volume 11.1 fL (9.1-12.4); NEUTROPHILS ABSOLUTE AUTO 7.47 K/mm3 (1.96-9.15); NEUTROPHILS PERCENT AUTO 81 % (41-73); Platelet Count 164 K/mm3 (150-400); RDW Coefficient Variation 16.6 % (11.7-14.2); RDW Standard Deviation 52.4 fL (35.1-46.3); Red Blood Cell Count 4.34 M/mm3 (3.80-5.20); White Blood Cell Count 9.21 K/mm3 (4.00-11.30)
[2020-07-31 18:56] LABS: Alanine Aminotransfer (ALT/SGP 27 U/L (12-78); Albumin, Blood 3.5 g/dL (3.4-5.0); Albumin/Globulin Ratio 0.8 (0.8-1.8); Alk Phos 121 U/L (50-136); Anion Gap 5 mmol/L (6-16); Aspartate Aminotrans (AST/SGOT 20 U/L (12-37); Bilirubin, Total 2.3 mg/dL (0.1-1.0); Blood Urea Nitrogen 15 mg/dL (8-24); Bun/Creatinine Ratio 16.8 (12.0-20.0); CO2, Blood 29 mmol/L (21-32); Calcium, Blood 8.9 mg/dL (8.5-10.1); Chloride, Blood 103 mmol/L (98-108); Creatinine, Blood 0.89 mg/dL (0.40-1.00); Globulin, Blood 4.4 g/dL (2.2-4.0); Glomerular Filtration Rate >60 (60-); Glucose, Blood 211 mg/dL (70-99); Potassium, Blood 4.2 mmol/L (3.5-5.5); Sodium, Blood 137 mmol/L (136-145); Total Protein, Blood 7.9 g/dL (6.4-8.2)
[2020-07-31 18:57] LABS: International Normalized Ratio 2.19; Prothrombin Time Results 22.4 Sec (9.7-11.5)
[2020-07-31 19:01] LABS: Source, Urine Catheter
[2020-07-31 19:04] LABS: Appearance, Urine Clear (Clear); Bilirubin, Urine Neg (Neg); Blood, Urine Neg (Neg); Color, Urine Yellow (P-Yellow); Glucose Qualitative, Urine 1+ (Neg); Ketones, Urine Neg (Neg); Leukocyte Esterase, Urine 1+ (Neg); Nitrite, Urine Neg (Neg); Protein, Urine 3+ (Neg); Urobilinogen, Urine 3+ (Normal)
[2020-07-31 19:11] LABS: Bacteria Few /hpf; Red Blood Cells, Urine Not Seen /hpf (0-2); Squamous Epithelial Cells Few /hpf (Few)
[2020-07-31 19:12] LABS: Influenza A, PCR NEGATIVE (NEGATIVE); Influenza B, PCR NEGATIVE (NEGATIVE); Resp Syncytial Virus, PCR NEGATIVE (NEGATIVE); SARS-Cov-2 (COVID-19) PCR, MMC NEGATIVE (NEGATIVE)
[2020-07-31] MEDS ORDERED: METFORMIN HCL1000 M6 PO (22:16)
[2020-07-31] MEDS ORDERED: THERA-D2000 UNIT PO (22:56)
[2020-08-01 00:42] LABS: Source, Urine Catheter
[2020-08-01 00:44] LABS: Bilirubin, Urine Neg (Neg); Blood, Urine Neg (Neg); Glucose Qualitative, Urine Neg (Neg); Ketones, Urine Neg (Neg); Leukocyte Esterase, Urine Neg (Neg); Nitrite, Urine Neg (Neg); Protein, Urine 1+ (Neg); Urobilinogen, Urine NORM (Normal)
[2020-08-01 00:46] LABS: Appearance, Urine Clear (Clear); Color, Urine Yellow (P-Yellow)
[2020-08-01 03:49] LABS: BASOPHILS ABSOLUTE AUTO 0.02 K/mm3 (0.00-0.23); BASOPHILS PERCENT AUTO 0 % (0-2); EOSINOPHILS PERCENT AUTO 0 % (0-6); Hemoglobin 11.5 g/dL (11.5-16.0); IMMATURE GRAN ABSOLUTE AUTO 0.04 K/mm3 (0.00-0.10); IMMATURE GRAN PERCENT AUTO 1 % (0-1); LYMPHOCYTES ABSOLUTE AUTO 0.35 K/mm3 (0.84-5.20); LYMPHOCYTES PERCENT AUTO 5 % (21-46); MONOCYTES ABSOLUTE AUTO 0.22 K/mm3 (0.16-1.47); MONOCYTES PERCENT AUTO 3 % (4-13); Mean Corpuscular HGB 27.3 pg (26.0-34.0); Mean Corpuscular HGB Conc 31.9 g/dL (31.5-36.5); Mean Corpuscular Volume 86 fL (80-100); Mean Platelet Volume 10.8 fL (9.1-12.4); NEUTROPHILS ABSOLUTE AUTO 5.96 K/mm3 (1.96-9.15); NEUTROPHILS PERCENT AUTO 91 % (41-73); Platelet Count 142 K/mm3 (150-400); RDW Coefficient Variation 16.3 % (11.7-14.2); RDW Standard Deviation 50.4 fL (35.1-46.3); Red Blood Cell Count 4.21 M/mm3 (3.80-5.20); White Blood Cell Count 6.59 K/mm3 (4.00-11.30)
[2020-08-01 04:03] LABS: International Normalized Ratio 2.03; Prothrombin Time Results 20.9 Sec (9.7-11.5)
[2020-08-01 04:04] LABS: Anion Gap 5 mmol/L (6-16); Blood Urea Nitrogen 14 mg/dL (8-24); CO2, Blood 31 mmol/L (21-32); Calcium, Blood 8.4 mg/dL (8.5-10.1); Chloride, Blood 103 mmol/L (98-108); Creatinine, Blood 0.88 mg/dL (0.40-1.00); Glomerular Filtration Rate >60 (60-); Glucose, Blood 281 mg/dL (70-99); Sodium, Blood 139 mmol/L (136-145)
--- NOTE | 2020-08-01 05:02 | NUR ---
REASSESSMENT PT RESTING, SNORING. WAKES TO VOICE, REMAINS ON 10L HIFLOW N/C. NO MONI ROSS IN PLACE DRAIING MEIR LE. VITALS STABLE.
--- NOTE | 2020-08-01 07:30 | NUR ---
PT AWAKENED FOR BLOOD SUGAR, ANSWERING QUESTIONS APPROPRIATELY, DENIES ANY COMPLAINTS. PT ON 10L HIFL NC, AFIB W/ PVC'S, LUNGS COARSE WITH LLL WHEEZE ON EXP. BOWEL TONES+, MONTENEGRO DRAINING CLEAR YELLOW, PEDAL PULSES FAINT, NO EDEMA.
--- NOTE | 2020-08-01 08:30 | NUR ---
IN TO AWAKE AND MEDICATE PATIENT, OFFER HER BREAKFAST. PT STATES SHE'S NOT HUNGRY. AWAKENS TO HAVE CONVERSATION WITH THIS RN, STATES SHE FEELS WELL, COUGH PRESENT, MOIST/PRODUCTIVE. STATES SHE HAS HAD A COUGH OF THIS NATURE FOR ALMOST A YEAR, RELATED IT TO ALLERGIES. SHE IS CONCERNED IF HER TEST COMES BACK POSITIVE, WHAT HAPPENS THEN. WE DISCUSSED HER ANTIBIOTIC THERAPY AND HER ANTIVIRALS, HOW THE REPORTING WORKS, WHO GETS CONTACTED. QUESTIONS ANSWERED TO HER SATISFACTION.
--- NOTE | 2020-08-01 16:37 | NUR ---
MORA LIM HAS BEEN RESTING MOST OF THE DAY, SHE IS ENGAGING AND TALKATIVE WHEN I GO IN THE ROOM, BUT WILL REST QUIETLY ON 10L/NC WHILE I AM AWAY. SHE HAS EATEN FAIRLY WELL TODAY, REFUSED BREAKFAST AND ATE HALF HER LUNCH, HER LUNGS HAVE BEEN COARSE AND CLEAR WITH COUGH. HER SPUTUM IS NOW TINGED WITH BLOOD, THIN CLEAR. HER MONTENEGRO CONT TO DRAIN TO GRAVITY WITH CLEAR YELLOW RETURN. UP TO BSC WITH LARGE BM, FAIRLY STEADY ON HER FEET, SBA WITH ONE ARM. SHE IS ABLE TO POSITION HERSELF IN BED NEEDED. HER CBG'S HAVE STEADILY DECREASED T/O THE DAY AND IS CURRENTLY AT 94. PT'S WAS IN, VISITED IN PPE. MADE AWARE OF THE TRANSFER TO PCU 7 THIS EVENING.
--- NOTE | 2020-08-01 18:39 | NUR ---
SHIFT SUMMARY/PT TRANFER PT TRANSFERRED TO UNIT AT END OF SHIFT FROM ICU. PT ALERT AND ORIENTED X 4. VS STABLE. OXYGEN SATURATION MAINTAINED ABOVE 94% ON 10 L OF OXYGEN VIA HIGH FLOW NC. NO CP OR PRESSURE REPORTED. WILL CONTINUE TO MONITOR UNTIL REPORT GIVEN TO NIGHTSHIFT RN.
[2020-08-02 03:53] LABS: Bicarbonate Venous 29.3 mmol/L (24.0-30.0); PCO2 Venous 51.4 mmHg (38-42); PO2 Venous 35.6 mmHg (38-42)
[2020-08-02 04:12] LABS: BASOPHILS ABSOLUTE AUTO 0.01 K/mm3 (0.00-0.23); BASOPHILS PERCENT AUTO 0 % (0-2); EOSINOPHILS ABSOLUTE AUTO 0.08 K/mm3 (0.00-0.68); EOSINOPHILS PERCENT AUTO 1 % (0-6); Hematocrit 32.9 % (33.0-51.0); Hemoglobin 10.2 g/dL (11.5-16.0); IMMATURE GRAN ABSOLUTE AUTO 0.02 K/mm3 (0.00-0.10); IMMATURE GRAN PERCENT AUTO 0 % (0-1); LYMPHOCYTES PERCENT AUTO 11 % (21-46); MONOCYTES ABSOLUTE AUTO 0.47 K/mm3 (0.16-1.47); MONOCYTES PERCENT AUTO 8 % (4-13); Mean Corpuscular HGB 26.9 pg (26.0-34.0); Mean Corpuscular Volume 87 fL (80-100); Mean Platelet Volume 10.7 fL (9.1-12.4); NEUTROPHILS ABSOLUTE AUTO 4.84 K/mm3 (1.96-9.15); NEUTROPHILS PERCENT AUTO 79 % (41-73); Platelet Count 164 K/mm3 (150-400); RDW Coefficient Variation 16.3 % (11.7-14.2); RDW Standard Deviation 51.6 fL (35.1-46.3); Red Blood Cell Count 3.79 M/mm3 (3.80-5.20); White Blood Cell Count 6.12 K/mm3 (4.00-11.30)
[2020-08-02 04:28] LABS: D-Dimer, Quantitative 0.68 mg/L FEU (0.00-0.52); International Normalized Ratio 1.98; Prothrombin Time Results 20.4 Sec (9.7-11.5)
[2020-08-02 04:35] LABS: Calcium, Blood 8.7 mg/dL (8.5-10.1)
--- NOTE | 2020-08-02 05:28 | NUR ---
SHIFT SUMMARY PATIENT IS ALERT AND ORIENTED. REPOSITIONED NEEDED, PATIENT ABLE TO REPSOTION SELF. MONTENEGRO IN PLACE AND DRAINING. PATIENT ON 10L VIA HIGH FLOW NC AT START OF SHIFT 02 SATS 97-100%, PATIENT CURRENTLY ON 4L NC, 02 SATS 94-95%. VSS, NO ACUTE CHANGES. ELEVATED D-DIMER CALLED TO HOSPITALIST. CALL LIGHT IN REACH.
--- NOTE | 2020-08-02 18:08 | NUR ---
SHIFT SUMMARY PT ALERT AND ORIENTED. VS STABLE. 02 SATS REMAIN ABOVE 90% ON 2L NC. BP STABLE. HR AFIB 70'S. PT DENIES ANY PAIN. MONTENEGRO PATENT AND DRAINING CLEAR YELLOW URINE. PT ABLE TO AMBULATE WITH SBA. WILL CONTINUE TO MONITOR AND REPORT TO ONCOMING RN. CALL LIGHT IN REACH. PT CALLING APPROPRIATELY.
[2020-08-03 04:15] LABS: BASOPHILS ABSOLUTE AUTO 0.01 K/mm3 (0.00-0.23); BASOPHILS PERCENT AUTO 0 % (0-2); EOSINOPHILS ABSOLUTE AUTO 0.04 K/mm3 (0.00-0.68); EOSINOPHILS PERCENT AUTO 1 % (0-6); Hemoglobin 9.8 g/dL (11.5-16.0); IMMATURE GRAN ABSOLUTE AUTO 0.02 K/mm3 (0.00-0.10); IMMATURE GRAN PERCENT AUTO 0 % (0-1); LYMPHOCYTES ABSOLUTE AUTO 0.79 K/mm3 (0.84-5.20); LYMPHOCYTES PERCENT AUTO 14 % (21-46); MONOCYTES ABSOLUTE AUTO 0.47 K/mm3 (0.16-1.47); MONOCYTES PERCENT AUTO 8 % (4-13); Mean Corpuscular HGB 27.5 pg (26.0-34.0); Mean Corpuscular HGB Conc 31.6 g/dL (31.5-36.5); Mean Corpuscular Volume 87 fL (80-100); Mean Platelet Volume 10.7 fL (9.1-12.4); NEUTROPHILS ABSOLUTE AUTO 4.51 K/mm3 (1.96-9.15); NEUTROPHILS PERCENT AUTO 77 % (41-73); Platelet Count 174 K/mm3 (150-400); RDW Standard Deviation 50.9 fL (35.1-46.3); Red Blood Cell Count 3.57 M/mm3 (3.80-5.20); White Blood Cell Count 5.84 K/mm3 (4.00-11.30)
[2020-08-03 04:35] LABS: International Normalized Ratio 2.03; Prothrombin Time Results 20.9 Sec (9.7-11.5)
[2020-08-03 04:41] LABS: Albumin, Blood 2.7 g/dL (3.4-5.0); Anion Gap 6 mmol/L (6-16); Blood Urea Nitrogen 26 mg/dL (8-24); Bun/Creatinine Ratio 24.5 (12.0-20.0); CO2, Blood 29 mmol/L (21-32); Calcium, Blood 8.7 mg/dL (8.5-10.1); Chloride, Blood 108 mmol/L (98-108); Creatinine, Blood 1.06 mg/dL (0.40-1.00); Glomerular Filtration Rate 55 (60-); Glucose, Blood 115 mg/dL (70-99); Phosphorus, Blood 3.4 mg/dL (2.5-4.9); Potassium, Blood 4.4 mmol/L (3.5-5.5); Sodium, Blood 143 mmol/L (136-145)
--- NOTE | 2020-08-03 06:05 | NUR ---
SHIFT SUMMARY NO ACUTE CHANGES THIS SHIFT. PT A&OX4. SP02>90% ON NC. TELEMETRY READS AFIB, HR 70'S-80'S. PT DENIES PAIN. PT HAD MONTENEGRO DURING SHIFT AND MONTENEGRO WAS D/C'D THIS AM WITH NO COMPLICATIONS. PT INSTRUCTED TO USE CALL LIGHT IF SHE NEEDS TO USE RESTROOM FOR SAFETY. PT VERBALIZED UNDERSTANDING. ABX INFUSED DURING SHIFT PER EMAR. PT SLEPT MOST OF NIGHT. CALL LIGHTIN REACH. WILL GIVE REPORT TO ONCOMING NURSE.
[2020-08-03] MEDS ORDERED: DEXA2 PO (17:30)
[2020-08-03] MEDS ORDERED: ACET325 PO (17:30)
[2020-08-03] MEDS ORDERED: FAMO20 PO (17:30)
[2020-08-03] MEDS ORDERED: LEVO750 PO (17:31)
[2020-08-03] MEDS ORDERED: LACT PO (17:31)
--- NOTE | 2020-08-03 18:17 | NUR ---
UPDATE PT ALERT AND ORIENTED. VS STABLE. O2 SATS HAVE REMAINED ABOVE 90% ON RA THROUGHOUT SHIFT. HR AFIB IN THE 70'S. DISCHARGE ORDERS PROVIDED AFTER HOME O2 EVAL. PT DOES NOT REQUIRE O2. DISCHARGE INSTRUCTIONS PROVIDED TO PT AND PT EDUCATED ON NEW MEDICATIONS. ALL QUESTIONS ANSWERED. PT TO BE TAKEN OUT BY WC.
== END 2020-08-03 19:13 | disposition home or self-care (01) | DRG 193 ==
LOC: ER 17:46 → PCU 20:42 → ICUW 22:04 → ICUE 22:25 → PCU 08-01 17:51
PROVIDERS: Emergency Medicine; Internal Medicine; ADMIT Hospitalist
PROC: 8E0ZXY6 Isolation (ICD-10-PCS; principal; 2020-07-31)
PROC: XW033E5 Introduction of Remdesivir Anti-infective into Peripheral Vein, Percutaneous Approach, New Technology Group 5 (ICD-10-PCS; 2020-07-31)
PROC: 3E0333Z Introduction of Anti-inflammatory into Peripheral Vein, Percutaneous Approach (ICD-10-PCS; 2020-07-31)
DX: J18.9 Pneumonia, unspecified organism (principal); J96.01 Acute respiratory failure with hypoxia; I48.20 Chronic atrial fibrillation, unspecified; I50.32 Chronic diastolic (congestive) heart failure; Z20.822 Contact with and (suspected) exposure to COVID-19; E11.42 Type 2 diabetes mellitus with diabetic polyneuropathy; E78.5 Hyperlipidemia, unspecified; I11.0 Hypertensive heart disease with heart failure; G47.30 Sleep apnea, unspecified; M54.9 Dorsalgia, unspecified; G89.29 Other chronic pain; M19.90 Unspecified osteoarthritis, unspecified site; I49.5 Sick sinus syndrome; Z96.653 Presence of artificial knee joint, bilateral; Z95.0 Presence of cardiac pacemaker; Z88.0 Allergy status to penicillin; Z88.1 Allergy status to other antibiotic agents; Z88.8 Allergy status to other drugs, medicaments and biological substances; Z79.01 Long term (current) use of anticoagulants; Z79.899 Other long term (current) drug therapy; Z79.84 Long term (current) use of oral hypoglycemic drugs; Z90.89 Acquired absence of other organs; Z90.710 Acquired absence of both cervix and uterus; Z98.890 Other specified postprocedural states; Z87.891 Personal history of nicotine dependence
CPT/HCPCS: 0241U; 36415; 51703; 71045; 80048; 80053; 80069; 81001; 82803; 82947; 83605; 83880; 84145; 84484; 85025; 85379; 85610; 85730; 87040; 87086; 93005; 93010; 94761; 94762; 96365; 96367; 96375; 97165; 97530; 97535; 99285-25; A9270; J0696; J1100; J1815; J1940; J1956; J7030; J7050; U0003

== ENCOUNTER 2021-08-13 22:53 | Inpatient (IN) | payer OTHER ==
[~2021-08-13] VITALS: Ht 162.6 cm; Wt 110.0 kg
[~2021-08-13 22:53] MED LIST changes: +DEXA2 PO; +FAMO20 PO; +LACT PO; +LEVO750 PO; +METFORMIN HCL1000 M6 PO; +THERA-D2000 UNIT PO
[2021-08-13 23:05] LABS: pH Blood Arterial 7.39 (7.35-7.45)
[2021-08-13 23:06] LABS: PO2 Arterial 62.4 mmHg (80-100)
[2021-08-13 23:35] LABS: BASOPHILS ABSOLUTE AUTO 0.03 K/mm3 (0.00-0.23); BASOPHILS PERCENT AUTO 0 % (0-2); EOSINOPHILS ABSOLUTE AUTO 0.04 K/mm3 (0.00-0.68); EOSINOPHILS PERCENT AUTO 1 % (0-6); Hemoglobin 11.2 g/dL (11.5-16.0); IMMATURE GRAN ABSOLUTE AUTO 0.04 K/mm3 (0.00-0.10); IMMATURE GRAN PERCENT AUTO 1 % (0-1); LYMPHOCYTES ABSOLUTE AUTO 0.78 K/mm3 (0.84-5.20); LYMPHOCYTES PERCENT AUTO 9 % (21-46); MONOCYTES ABSOLUTE AUTO 0.72 K/mm3 (0.16-1.47); MONOCYTES PERCENT AUTO 9 % (4-13); Mean Corpuscular HGB 27.7 pg (26.0-34.0); Mean Corpuscular HGB Conc 31.1 g/dL (31.5-36.5); Mean Corpuscular Volume 89 fL (80-100); Mean Platelet Volume 10.4 fL (9.1-12.4); NEUTROPHILS ABSOLUTE AUTO 6.86 K/mm3 (1.96-9.15); NEUTROPHILS PERCENT AUTO 81 % (41-73); Platelet Count 177 K/mm3 (150-400); RDW Coefficient Variation 15.4 % (11.7-14.2); RDW Standard Deviation 50.9 fL (35.1-46.3); Red Blood Cell Count 4.04 M/mm3 (3.80-5.20); White Blood Cell Count 8.47 K/mm3 (4.00-11.30)
[2021-08-13 23:54] LABS: Albumin, Blood 3.3 g/dL (3.4-5.0); Albumin/Globulin Ratio 0.8 (0.8-1.8); Bun/Creatinine Ratio 17.4 (12.0-20.0); Calcium, Blood 8.5 mg/dL (8.5-10.1); Creatinine, Blood 1.09 mg/dL (0.40-1.00); Globulin, Blood 4.2 g/dL (2.2-4.0); Potassium, Blood 4.3 mmol/L (3.5-5.5); Total Protein, Blood 7.5 g/dL (6.4-8.2)
[2021-08-14] LABS: D-Dimer, Quantitative 0.72 mg/L FEU (0.00-0.52)
[2021-08-14 00:14] LABS: Influenza A, PCR NEGATIVE (NEGATIVE); Influenza B, PCR NEGATIVE (NEGATIVE); Resp Syncytial Virus, PCR NEGATIVE (NEGATIVE); SARS-Cov-2 (COVID-19) PCR, MMC NEGATIVE (NEGATIVE)
[2021-08-14 01:13] LABS: International Normalized Ratio 1.73; Prothrombin Time Results 17.5 Sec (9.7-11.5)
--- NOTE | 2021-08-14 02:10 | NUR ---
PT ADMITTED TO FLOOR VIA GURNEY FROM ER. PT AMBULATORY TO MEDICAL FLOOR BED. PT ON 6L HIGH FLOW OXYGEN - SATS WNL. PT'S LS ARE CLEAR THROUGHOUT. PT IS ALERT AND ORIENTED, DENIES ANY COMPLAINTS OF PAIN, OR SOB. PT DENIES ANY HEADACHE, CHEST PAIN, OR NAUSEA. PT IS COOPERATIVE WITH CARE. REVIEWED CALL LIGHT AND PLACED BED ALARM ON FOR PT SAFETY - PT STATES SHE WILL CALL FOR ASSISTANCE OOB. PT WATCHING TV DURING ASSESSMENT. BED IN LOW POSITION. FLUIDS AT BEDSIDE. CALL LIGHT WITHIN REACH. WILL CONTINUE TO MONITOR UNTIL AM SHIFT.
--- NOTE | 2021-08-14 04:14 | NUR ---
RECONCILED MEDICATIONS - PT TAKES COUMADIN - CURRENTLY NO ORDER FOR PT'S ROUTINE HOME MEDICATIONS - WILL REPORT THIS OFF TO AM SHIFT, IF HASN'T PLACED NEW ORDERS PRIOR TO SHIFT CHANGE.
--- NOTE | 2021-08-14 07:18 | NUR ---
SHIFT SUMMARY - NO ACUTE CHANGES SINCE ADMIT THIS AM. PT HAS BEEN SLEEPING AFTER ASSESSMENT COMPLETE. NO S/S OF DISTRESS. SATS WNL ON 6L OXYGEN VIA HIGH FLOW NC. FLUIDS AT BEDSIDE. CALL LIGHT WITHIN REACH. BED IN LOW POSITION. BED ALARM ON FOR SAFETY. REPORT GIVEN TO AM SHIFT.
[2021-08-14 08:30] LABS: BASOPHILS ABSOLUTE AUTO 0.03 K/mm3 (0.00-0.23); BASOPHILS PERCENT AUTO 0 % (0-2); EOSINOPHILS ABSOLUTE AUTO 0.04 K/mm3 (0.00-0.68); EOSINOPHILS PERCENT AUTO 1 % (0-6); Hematocrit 33.9 % (33.0-51.0); Hemoglobin 10.6 g/dL (11.5-16.0); IMMATURE GRAN ABSOLUTE AUTO 0.06 K/mm3 (0.00-0.10); IMMATURE GRAN PERCENT AUTO 1 % (0-1); LYMPHOCYTES ABSOLUTE AUTO 0.71 K/mm3 (0.84-5.20); LYMPHOCYTES PERCENT AUTO 9 % (21-46); MONOCYTES ABSOLUTE AUTO 0.66 K/mm3 (0.16-1.47); MONOCYTES PERCENT AUTO 9 % (4-13); Mean Corpuscular HGB 27.8 pg (26.0-34.0); Mean Corpuscular HGB Conc 31.3 g/dL (31.5-36.5); Mean Corpuscular Volume 89 fL (80-100); Mean Platelet Volume 10.7 fL (9.1-12.4); NEUTROPHILS ABSOLUTE AUTO 6.04 K/mm3 (1.96-9.15); NEUTROPHILS PERCENT AUTO 80 % (41-73); Platelet Count 154 K/mm3 (150-400); RDW Coefficient Variation 15.3 % (11.7-14.2); RDW Standard Deviation 49.7 fL (35.1-46.3); Red Blood Cell Count 3.81 M/mm3 (3.80-5.20); White Blood Cell Count 7.54 K/mm3 (4.00-11.30)
[2021-08-14 08:49] LABS: Albumin, Blood 3.1 g/dL (3.4-5.0); Albumin/Globulin Ratio 0.8 (0.8-1.8); Bilirubin, Total 1.3 mg/dL (0.1-1.0); Bun/Creatinine Ratio 19.9 (12.0-20.0); Calcium, Blood 8.6 mg/dL (8.5-10.1); Creatinine, Blood 0.96 mg/dL (0.40-1.00); Globulin, Blood 4.1 g/dL (2.2-4.0); Potassium, Blood 3.8 mmol/L (3.5-5.5); Total Protein, Blood 7.2 g/dL (6.4-8.2)
[2021-08-14 09:00] LABS: Digoxin (Lanoxin) 0.96 ug/mL (0.80-2.00)
[2021-08-14 15:57] LABS: CPK Creatine Kinase 90 U/L (26-193)
--- NOTE | 2021-08-14 18:31 | NUR ---
SHIFT SUMMARY: NO ACUTE EVENTS. OXYGEN TITRATED DOWN FROM 6 L/MIN HIGH FLOW TO 3 L/MIN NC, SATS 94%, TOLERATING WELL. C/O DISCOMFORT FROM L ANKLE FX; DENIED NEED FOR PAIN MEDS, GAVE ICE PACK WHICH HELPED. WAS IN AFIB WITH V PACED BEATS ON TELEMETRY, HAS SINCE BEEN D/C'D. SPOUSE AT BEDSIDE MOST OF THE DAY. USING BSC WITH SBA. IS LOOKING FORWARD TO DISCHARGE HOME.
--- NOTE | 2021-08-15 02:22 | NUR ---
DIRECTOR PRINT SUMMARY PATIENT HAD A FAIR SHIFT. SHE IS ALERT AND ORIENTED. STILL ON OXYGEN AT 3L. HER VITALS WERE STABLE. SHE DID NOT LODGE ANY COMPLAINT OVERNIGHT. WILL CONTINUE TO MONITOR HER.
[2021-08-15 04:54] LABS: Hematocrit 32.1 % (33.0-51.0); Hemoglobin 10.1 g/dL (11.5-16.0); Mean Corpuscular HGB 27.9 pg (26.0-34.0); Mean Corpuscular HGB Conc 31.5 g/dL (31.5-36.5); Mean Corpuscular Volume 89 fL (80-100); Mean Platelet Volume 10.8 fL (9.1-12.4); Platelet Count 166 K/mm3 (150-400); RDW Coefficient Variation 15.1 % (11.7-14.2); RDW Standard Deviation 49.3 fL (35.1-46.3); Red Blood Cell Count 3.62 M/mm3 (3.80-5.20); White Blood Cell Count 5.59 K/mm3 (4.00-11.30)
[2021-08-15 05:13] LABS: Anion Gap 5 mmol/L (6-16); Blood Urea Nitrogen 22 mg/dL (8-24); Bun/Creatinine Ratio 22.5 (12.0-20.0); CO2, Blood 32 mmol/L (21-32); Calcium, Blood 8.7 mg/dL (8.5-10.1); Chloride, Blood 102 mmol/L (98-108); Creatinine, Blood 0.98 mg/dL (0.40-1.00); Glomerular Filtration Rate 57 (60-); Glucose, Blood 157 mg/dL (70-99); Potassium, Blood 3.8 mmol/L (3.5-5.5); Sodium, Blood 139 mmol/L (136-145)
[2021-08-15 05:14] LABS: International Normalized Ratio 2.01; Prothrombin Time Results 20.2 Sec (9.7-11.5)
--- NOTE | 2021-08-15 14:16 | NUR ---
Patient tells me about her medical conditions and the plan of care going forward. Patient talks about personal struggles and her challenges, but also about her zachary and her solid family support. I provide therapeutic listening, gentle deputy chief counsel and prayer. Patient responds well and shows signs of increased peace. I will continue to remain available to patient and family.
--- NOTE | 2021-08-15 17:14 | NUR ---
PT AOX4 AND COOPERATIVE OF CARE. PT ON 1.5L O2 AND IS TITRATING DOWN. PT DOING WELL AND IS INDEPENDENT IN ROOM TO BEDSIDE COMMODE. PT CALLS APPROPRIATELY AND NO DISTESS NOTED. CALL LIGHT IS WITHIN REACH WILL CONTINUE TO MONITOR.
--- NOTE | 2021-08-15 21:53 | NUR ---
AWAKE AT HS, CHEERFUL AFFECT. TOLERATES MEDS WELL. CALL LIGHT IN REACH
--- NOTE | 2021-08-16 03:52 | NUR ---
CLIENT HR MANAGER SUMMARY AWAKE AT HS, TOLERATED HS MEDS WELL. CHEERFUL AFFECT AND TALKATIVE. JOKED WITH NURSE. O2 REMAINS AT 1L/MIN PER NC. SATS ADEQUATE. SEE VITAL SIGNS. HAS BEEN RSETING QUIETLY WITH EFW INTERRUPTIONS SINCE. CALL LIGHT IN REACH
[2021-08-16 05:57] LABS: International Normalized Ratio 2.12; Prothrombin Time Results 21.2 Sec (9.7-11.5)
--- NOTE | 2021-08-16 15:15 | NUR ---
PT DISCHARGED THE PT VERBALIZED UNDERSTANDING OF THE DC INSTRUCTIONS. APPOINTMENTS WERE MADE WITH THE PT'S PCP'S PRIOR TO DC. THE PT APPEARED TO BE BREATHING EASILY ON RA AT THIS TIME. THE PT WAS TRANSFRED VIA WHEELCHAIR TO THE FRONT ENTRANCE ACCOMPANIED BY THE PRODUCTION PLANNING MANAGER
== END 2021-08-16 14:06 | disposition home or self-care (01) | DRG 291 ==
LOC: ER 22:53 → MEDS 08-14 01:27
PROVIDERS: Emergency Medicine; Internal Medicine; Pharmacist; ADMIT Internal Medicine
DX: I11.0 Hypertensive heart disease with heart failure (principal); I50.33 Acute on chronic diastolic (congestive) heart failure; J96.01 Acute respiratory failure with hypoxia; I48.20 Chronic atrial fibrillation, unspecified; E87.2 Acidosis; Z20.822 Contact with and (suspected) exposure to COVID-19; R79.1 Abnormal coagulation profile; E11.65 Type 2 diabetes mellitus with hyperglycemia; E78.5 Hyperlipidemia, unspecified; K21.9 Gastro-esophageal reflux disease without esophagitis; G47.33 Obstructive sleep apnea (adult) (pediatric); J44.9 Chronic obstructive pulmonary disease, unspecified; M54.9 Dorsalgia, unspecified; E11.42 Type 2 diabetes mellitus with diabetic polyneuropathy; G89.29 Other chronic pain; S82.892D Other fracture of left lower leg, subsequent encounter for closed fracture with routine healing; M19.90 Unspecified osteoarthritis, unspecified site; I49.5 Sick sinus syndrome; Z88.0 Allergy status to penicillin; Z88.1 Allergy status to other antibiotic agents; Z88.8 Allergy status to other drugs, medicaments and biological substances; Z79.84 Long term (current) use of oral hypoglycemic drugs; Z79.01 Long term (current) use of anticoagulants; Z79.899 Other long term (current) drug therapy; Z95.0 Presence of cardiac pacemaker; Z98.84 Bariatric surgery status; Z98.890 Other specified postprocedural states; Z90.710 Acquired absence of both cervix and uterus; Z90.89 Acquired absence of other organs; Z87.891 Personal history of nicotine dependence
CPT/HCPCS: 0241U; 36415; 36416; 36600; 71045; 71260; 73610; 80053; 80069; 80162; 82550; 82803; 82947; 83605; 83880; 84145; 84484; 85025; 85027; 85379; 85610; 87040; 93005; 93010; 93306; 96374; 99285-25; A9270; J1940; Q9967

== ENCOUNTER 2023-01-06 14:11 | Inpatient (IN) | payer OTHER ==
[~2023-01-06] VITALS: Ht 162.6 cm; Wt 110.2 kg
[2023-01-06 15:20] LABS: BASOPHILS ABSOLUTE AUTO 0.04 K/mm3 (0.00-0.23); BASOPHILS PERCENT AUTO 1 % (0-2); EOSINOPHILS ABSOLUTE AUTO 0.06 K/mm3 (0.00-0.68); EOSINOPHILS PERCENT AUTO 1 % (0-6); Hemoglobin 13.3 g/dL (11.5-16.0); IMMATURE GRAN ABSOLUTE AUTO 0.06 K/mm3 (0.00-0.10); IMMATURE GRAN PERCENT AUTO 1 % (0-1); LYMPHOCYTES ABSOLUTE AUTO 0.43 K/mm3 (0.84-5.20); LYMPHOCYTES PERCENT AUTO 5 % (21-46); MONOCYTES ABSOLUTE AUTO 0.53 K/mm3 (0.16-1.47); MONOCYTES PERCENT AUTO 6 % (4-13); Mean Corpuscular HGB 27.6 pg (26.0-34.0); Mean Corpuscular HGB Conc 31.7 g/dL (31.5-36.5); Mean Corpuscular Volume 87 fL (80-100); Mean Platelet Volume 10.2 fL (9.1-12.4); NEUTROPHILS ABSOLUTE AUTO 7.12 K/mm3 (1.96-9.15); NEUTROPHILS PERCENT AUTO 87 % (41-73); Platelet Count 153 K/mm3 (150-400); RDW Coefficient Variation 16.2 % (11.7-14.2); RDW Standard Deviation 51.9 fL (35.1-46.3); Red Blood Cell Count 4.82 M/mm3 (3.80-5.20); White Blood Cell Count 8.24 K/mm3 (4.00-11.30)
[2023-01-06 15:44] LABS: Albumin, Blood 3.7 g/dL (3.4-5.0); Albumin/Globulin Ratio 0.9 (0.8-1.8); Bilirubin, Total 0.7 mg/dL (0.1-1.0); Bun/Creatinine Ratio 17.6 (12.0-20.0); Calcium, Blood 8.7 mg/dL (8.5-10.1); Creatinine, Blood 1.36 mg/dL (0.40-1.00); Globulin, Blood 3.9 g/dL (2.2-4.0); Potassium, Blood 4.7 mmol/L (3.5-5.5); Thyroid Stimulating Hormone 1.5 uIU/mL (0.360-4.800); Total Protein, Blood 7.6 g/dL (6.4-8.2)
[2023-01-06 16:02] LABS: Source, Urine Clean Catch
[2023-01-06 16:34] LABS: International Normalized Ratio 2.03; Prothrombin Time Results 20.5 Sec (9.7-11.5)
[2023-01-06 17:04] LABS: Appearance, Urine Clear (Clear); Bilirubin, Urine Neg (Neg); Blood, Urine Neg (Neg); Color, Urine Yellow (P-Yellow); Glucose Qualitative, Urine 4+ (Neg); Ketones, Urine Neg (Neg); Leukocyte Esterase, Urine Neg (Neg); Nitrite, Urine Neg (Neg); Protein, Urine Neg (Neg); Specific Gravity, Urine 1.015 (1.003-1.022); Urobilinogen, Urine NORM (Normal)
[2023-01-06 17:40] LABS: U Amphetamine Screen Not Detected; U Barbituate Screen Not Detected; U Benzodiazapine Screen Not Detected; U Buprenorphine Screen Not Detected; U Cannabinoids Screen Not Detected; U Cocaine Screen Not Detected; U Methadone Screen Not Detected; U Methamphetamine Screen Not Detected; U Opiates Screen Not Detected; U Oxycodone Screen Not Detected; U Phencyclidine Screen Not Detected; U Propoxyphene Screen Not Detected
[2023-01-06 20:43] VITALS: BP 163/88
--- NOTE | 2023-01-06 21:00 | NUR ---
ADMISSION REPORT RECEIVED FROM ER NURSE. PATIENT ARRIVES TO PCU 08, MOVED TO PCU BED WITH ASSISTANCE OF STAFF. AND SON ACCOMPANYING PATIENT. PATIENT IS ALERT, ORIENTED TO SELF, ABLE TO ANSWER SOME QUESTIONS BUT WORDS ARE SLURRED. PATIENT FIDGETING AND PULLING AT LINES. HYPERTENSIVE AND ON 5L NC UPON ARRIVAL TO PCU. SPO2 LOW TO MID 90s. PUREWICK PLACED BY ER, SUCTION SET UP AT THIS TIME. ABLE TO ANSWER ALL ADMISSION QUESTIONS. PATIENT ORIENTED TO ROOM AND CALL LIGHT SYSTEM. BED ALARM ON FOR SAFETY. PATIENT AND FAMILY DENY ANY SOURCES OF IGNITION AT THIS TIME. EDUCATED ON INCREASED IGNITION RISK WHILE O2 IN USE. FAMILY VERBALIZED UNDERSTANDING.
[2023-01-06 21:50] LABS: Base Excess Venous 8.2 mmol/L; PCO2 Venous 52.2 mmHg (38-42)
[2023-01-06 21:52] LABS: pH Blood Venous 7.41 (7.34-7.37)
[2023-01-06] MEDS ORDERED: MAGNESIUM OXID500 MG PO (21:53)
[2023-01-06] MEDS ORDERED: B COMPLEX FORM0.4 MG PO (21:53)
[2023-01-06] MEDS ORDERED: IRON18 MG PO (21:54)
[2023-01-06] MEDS ORDERED: DOCU100 PO (21:54)
[2023-01-06] MEDS ORDERED: JARDIANCE25 MG PO (21:55)
[2023-01-06] MEDS ORDERED: CALC.25 PO (21:55)
--- NOTE | 2023-01-06 22:00 | NUR ---
UPDATE CALL PLACED TO HOSPITALIST DR. SMITH REGARDING NO COVERAGE FOR CAROTID DUPLEX TO BE PERFORMED. HOSPITALIST OK WITH ULTRASOUND IN AM. PER DR. SMITH, CHANGE Q4 NEURO CHECKS TO Q2 NEURO CHECKS AND USE NIH STROKE SCALE. THIS RN AND BUSINESS ANALYTICS FACULTY MEMBER IN ROOM TO OBTAIN BASELINE NIH STROKE SCALE ASSESSMENT. PATIENT SCORED 10, HOSPITALIST UPDATED WITH ASSESSMENT. WILL REASSESS AND UPDATE HOSPITALIST AT 0000.
[2023-01-06 23:14] VITALS: BP 176/101
--- NOTE | 2023-01-07 | NUR ---
UPDATE THIS RN AND MANAGER ERP IN ROOM FOR 0000 NEURO CHECK. NIH STROKE SCALE SCORE OF 9 AT THIS TIME. PATIENT ALSO HYPERTENSIVE. HOSPITALIST DR. CINTRON UPDATED WITH NIH STROKE SCALE SCORE. ORDER RECEIVED FOR PERMISSIVE HYPERTENSION, SEE UPDATED ORDERS.
--- NOTE | 2023-01-07 04:00 | NUR ---
UPDATE NIH STROKE SCALE COMPLETED AT 0200 AND 0400. PATIENT SCORED 9 DURING BOTH ASSESSMENTS. ORAL CARE AND MOUTH MOISTENED WITH SPONGE SWABS.
[2023-01-07 04:28] VITALS: BP 132/63
[2023-01-07 05:49] LABS: International Normalized Ratio 1.67
--- NOTE | 2023-01-07 06:55 | NUR ---
SHIFT SUMMARY PATIENT DROWSY BUT WAKES TO VERBAL STIMULI. ORIENTED TO SELF ONLY AT THIS TIME. PATIENT WILL ATTEMPT TO GUESS WHAT MONTH/YEAR WHEN ASKED. SEE PREVIOUS NOTES REGARDING NEURO CHECKS AND STROKE SCALE. PATIENT INCONTINENT OF BOWEL AND BLADDER DURING THE NIGHT WITH MULTIPLE INCONTNIENT VOIDS. STOOL SAMPLE SENT TO LAB AND PATIENT PLACED IN ISOLATION D/T FREQUENT BOWEL MOVEMENTS. TURNING PATIENT Q2. POWERGLIDE PLACED OVERNIGHT. NO OTHER SIGNIFICANT CHANGES THIS SHIFT. WILL REPORT TO DAY SHIFT RN. NO IGNITION RISK NOTED AT THIS TIME. PATIENT'S FAMILY EDUCATED, VERBALIZED UNDERSTANDING. WILL CONTINUE TO MONTITOR FOR INCREASED RISK.
[2023-01-07 07:53] LABS: Glucose, Blood 216 mg/dL (70-99)
[2023-01-07 08:31] VITALS: BP 135/63
[2023-01-07 09:07] LABS: Hemoglobin 12.9 g/dL (11.5-16.0); Mean Corpuscular HGB Conc 31.5 g/dL (31.5-36.5); Mean Corpuscular Volume 86 fL (80-100); Mean Platelet Volume 10.8 fL (9.1-12.4); Platelet Count 154 K/mm3 (150-400); RDW Coefficient Variation 16.5 % (11.7-14.2); RDW Standard Deviation 51.2 fL (35.1-46.3); Red Blood Cell Count 4.78 M/mm3 (3.80-5.20); White Blood Cell Count 6.05 K/mm3 (4.00-11.30)
[2023-01-07 09:19] LABS: Anion Gap 7 mmol/L (6-16); Blood Urea Nitrogen 21 mg/dL (8-24); Bun/Creatinine Ratio 15.8 (12.0-20.0); CHOL/HDL RATIO 3.1; CO2, Blood 30 mmol/L (21-32); Calcium, Blood 8.5 mg/dL (8.5-10.1); Chloride, Blood 103 mmol/L (98-108); Cholesterol 134 mg/dL (50-200); Creatinine, Blood 1.33 mg/dL (0.40-1.00); Glomerular Filtration Rate 43 (60-); Glucose, Blood 204 mg/dL (70-99); HDL Cholesterol 43 mg/dL (>39); LDL/HDL RATIO 0.4; Low Density Lipoprotein Chol 16 mg/dL (0-110); Potassium, Blood 3.8 mmol/L (3.5-5.5); Sodium, Blood 140 mmol/L (136-145); Triglycerides 374 mg/dL (30-160); Very Low Density Lipoprot Chol 74 mg/dL (6-32)
--- NOTE | 2023-01-07 09:24 | NUR ---
CARE OF PT ASSUMED AT 0700. PT AWAKE AND ALERT, ORIENTED X3. PT HAS EQUAL AND STRONG EMAIL OPERATIONS MANAGER BILAT, EQUAL AND STRONG TO BLE. NIH SCALE COMPLETED AT 0800 W A SCORE OF 1 FOR SLIGHTLY SLURRED SPEECH. PT FEELS IT IS DO TO A DRY MOUTH. FAMILY STATES IT IS CLOSE TO BASELINE. THERE MIGHT BE THE SLIGHTEST DROOP TO LEFT LIP, NO TONGUE DEVIATION, SYMMETRICLE SMILE. MRI ORDERED, UNABLE TO HAVE MRI D/T PACE MAKER; WILL NOTIFY DR FOWLER; REPEAT CT ORDERED. BED SIDE SWALLOW COMPLETED, PT PASSED. PT IN AFIB, OCC VPACED. BP STABLE, ALTHOUGH NO PERMISSIVE HTN BP 135/63. PT AFEBRILE, AND DENIES PAIN. SATS >90% ON 3L N/C. LASIX GIVEN THIS AM. NO FURTHER LOOSE STOOLS; AWAITING CDIFF RESULTS. FAMILY AT BEDSIDE, UPDATED.
[2023-01-07 10:26] LABS: BAND PERCENT MAN 1 % (0-8); BASOPHILS ABSOLUTE MAN 0.12 K/mm3 (0.00-0.23); BASOPHILS PERCENT MAN 2 % (0-2); EOSINOPHILS ABSOLUTE MAN 0.12 K/mm3 (0.00-0.68); EOSINOPHILS PERCENT MAN 2 % (0-6); LYMPHOCYTES ABSOLUTE MAN 0.54 K/mm3 (0.84-5.20); LYMPHOCYTES PERCENT MAN 9 % (21-46); MONOCYTES PERCENT MAN 5 % (4-13); NEUTROPHILS ABSOLUTE MAN 4.96 K/mm3 (1.96-9.15); SEG NEUTROPHILS PERCENT MAN 81 % (41-73); TOTAL CELLS COUNTED 100
--- NOTE | 2023-01-07 10:29 | NUR ---
DR FOWLER AT BEDSIDE, UPDATE GIVEN. Q2 HR NEURO CHECKS DC'D. ADA DIET ORDERED. WILL TITRATE O2 DOWN TOLERATED. CPAP TO BE ORDERED FOR NIGHT. PT TO CT NOW W TRIAL EXAMINER.
[2023-01-07 11:34] VITALS: BP 118/66
[2023-01-07 12:03] LABS: C DIFFICILE DNA NEGATIVE (Negative)
--- NOTE | 2023-01-07 12:31 | NUR ---
ECHO, CAROTID U/S, AND CT COMPLETE. NO CHANGE IN NEURO ASSESSMENT, NO NEW NEW DEFICITS NOTED. FAMILY AY BEDSIDE. PT TOLERATING MEAL, NO SWALLOW DIFFICULTIES NOTED.
[2023-01-07 16:33] VITALS: BP 111/79
--- NOTE | 2023-01-07 18:01 | NUR ---
MILD SLURRED SPEECH CONTINUES TO IMPROVE, NO OTHER NEURO DEFICITS NOTED. PT TOLERATING PO WELL. PATIENT WORKED W PT TODAY, STOOD AT BEDSIDE. PT'S SATS AROUND 90% ON 3L VIA N/C. PT'S LUNGS RELATIVELY CLEAR T/O SHIFT, SOME MILD SCATTERED WHEEZES NOTED TOWARDS END OF SHIFT, ONLY WHILE PT ASLEEP AND RECLINED. WHEEZING ABSENT WHEN PT AWAKE. PT W GOOD URINE OUTPUT TODAY. AT BEDSIDE FOR ENTIRE SHIFT.
[2023-01-07 20:50] VITALS: BP 143/82
[2023-01-08 00:35] VITALS: BP 130/80
[2023-01-08 03:10] VITALS: BP 148/100
[2023-01-08 05:00] LABS: Bun/Creatinine Ratio 20.6 (12.0-20.0); Calcium, Blood 8.4 mg/dL (8.5-10.1); Creatinine, Blood 1.36 mg/dL (0.40-1.00); Potassium, Blood 3.6 mmol/L (3.5-5.5)
[2023-01-08 05:05] LABS: International Normalized Ratio 1.61; Prothrombin Time Results 16.5 Sec (9.7-11.5)
--- NOTE | 2023-01-08 05:58 | NUR ---
End of shift note. Pt has slept fair this shift. No stroke signs were noted on assessment. Pt had some family visiting at HS. Multiple short episodes of RVR, mostly correlating with moving/turning to get cleaned up. Pt is able to make needs known, call light is within reach.
[2023-01-08 08:17] VITALS: BP 128/52
[2023-01-08] MEDS ORDERED: Aspir 8181 MG PO (09:47)
[2023-01-08] MEDS ORDERED: PREG75 PO (09:48)
[2023-01-08 11:47] VITALS: BP 124/85
[2023-01-08 14:13] VITALS: BP 135/55
--- NOTE | 2023-01-08 14:15 | NUR ---
DISCHARGE SUMMARY Pt alert, oriented x4; calm and cooperative with care. Pt resting in bed, up with sba in room. Home o2 eval completed, sba with walker around unit, needing 2l o2 via nc. Pt denies pain, chest pain, sob, nausea, dizziness and numb/tingling. Tele afib 90-120's this am, when pt up with activity at 170's notified Dr Borjas, new order for one time dose of home medications, hr 80-110's this afternoon, bp stable. Spo2 >90% on 4l o2 via nc this afternoon, pt titrated down to ra at rest >90%, desaturates with activity down to 84, plans to go home with 2l with activity. Abd soft, nontedner, normoactive bt, Other vss. No other acute changes noted. Educated pt and famiyl on discharge instructions, follow up appointment and medications. Physical prescription handed to spouse at bedside. Prescriptioons faxed to [facility] per pt request. Pt left via wheelchair at approx 1420 with portable home o2.
== END 2023-01-08 14:19 | disposition home or self-care (01) | DRG 91 ==
LOC: ER 14:11 → PCU 17:40
PROVIDERS: Family Medicine Adult Medicine; Internal Medicine; ADMIT Student in an Organized Health Care Education/Training Program
DX: R47.81 Slurred speech (principal); G92.8 Other toxic encephalopathy; I50.33 Acute on chronic diastolic (congestive) heart failure; J96.01 Acute respiratory failure with hypoxia; J96.02 Acute respiratory failure with hypercapnia; I48.20 Chronic atrial fibrillation, unspecified; I13.0 Hypertensive heart and chronic kidney disease with heart failure and stage 1 through stage 4 chronic kidney disease, or unspecified chronic kidney disease; Z68.41 Body mass index [BMI] 40.0-44.9, adult; G81.92 Hemiplegia, unspecified affecting left dominant side; R41.0 Disorientation, unspecified; E11.22 Type 2 diabetes mellitus with diabetic chronic kidney disease; N18.30 Chronic kidney disease, stage 3 unspecified; E66.9 Obesity, unspecified; R29.810 Facial weakness; G47.33 Obstructive sleep apnea (adult) (pediatric); E78.00 Pure hypercholesterolemia, unspecified; Z96.651 Presence of right artificial knee joint; Z96.652 Presence of left artificial knee joint; Z95.5 Presence of coronary angioplasty implant and graft; Z90.89 Acquired absence of other organs; Z90.710 Acquired absence of both cervix and uterus; Z98.890 Other specified postprocedural states; Z79.01 Long term (current) use of anticoagulants; Z90.49 Acquired absence of other specified parts of digestive tract; Z87.891 Personal history of nicotine dependence; Z98.49 Cataract extraction status, unspecified eye; Z88.0 Allergy status to penicillin; Z88.8 Allergy status to other drugs, medicaments and biological substances; Z88.1 Allergy status to other antibiotic agents; Z79.84 Long term (current) use of oral hypoglycemic drugs; Z79.899 Other long term (current) drug therapy; Z91.148 Patient's other noncompliance with medication regimen for other reason
CPT/HCPCS: 70450; 70496; 70498; 71045; 80048; 80053; 80061; 81003; 82140; 82803; 82947; 83036; 83880; 84443; 84484; 85007; 85025; 85027; 85610; 87493; 93005; 93010; 93306; 93880; 94761; 94762; 97110; 97161; 97530; 99285; A9270; C1751; J1644; J1940; Q9967

== ENCOUNTER → 2023-01-26 | Outpatient (CLI) | payer OTHER ==
[~2023-01-26] MED LIST changes: +Aspir 8181 MG PO; +B COMPLEX FORM0.4 MG PO; +IRON18 MG PO; +JARDIANCE25 MG PO; +MAGNESIUM OXID500 MG PO; +PREG75 PO
[2023-01-26 15:48] LABS: International Normalized Ratio 1.69; Prothrombin Time Results 17.2 Sec (9.7-11.5)
[2023-01-26 16:34] LABS: BASOPHILS ABSOLUTE AUTO 0.09 K/mm3 (0.00-0.23); BASOPHILS PERCENT AUTO 1 % (0-2); EOSINOPHILS ABSOLUTE AUTO 0.23 K/mm3 (0.00-0.68); EOSINOPHILS PERCENT AUTO 3 % (0-6); Hematocrit 43.2 % (33.0-51.0); Hemoglobin 13.6 g/dL (11.5-16.0); IMMATURE GRAN ABSOLUTE AUTO 0.04 K/mm3 (0.00-0.10); IMMATURE GRAN PERCENT AUTO 1 % (0-1); LYMPHOCYTES ABSOLUTE AUTO 1.18 K/mm3 (0.84-5.20); LYMPHOCYTES PERCENT AUTO 14 % (21-46); MONOCYTES ABSOLUTE AUTO 0.58 K/mm3 (0.16-1.47); MONOCYTES PERCENT AUTO 7 % (4-13); Mean Corpuscular HGB 27.5 pg (26.0-34.0); Mean Corpuscular HGB Conc 31.5 g/dL (31.5-36.5); Mean Corpuscular Volume 87 fL (80-100); NEUTROPHILS ABSOLUTE AUTO 6.07 K/mm3 (1.96-9.15); NEUTROPHILS PERCENT AUTO 74 % (41-73); Platelet Count 221 K/mm3 (150-400); RDW Coefficient Variation 17.1 % (11.7-14.2); RDW Standard Deviation 51.4 fL (35.1-46.3); Red Blood Cell Count 4.95 M/mm3 (3.80-5.20); White Blood Cell Count 8.19 K/mm3 (4.00-11.30)
== END | disposition home or self-care (01) ==
LOC: LAB 14:51 → LAB SHORT 14:51
PROVIDERS: Physician Assistant
DX: Z11.59 Encounter for screening for other viral diseases (principal); E11.9 Type 2 diabetes mellitus without complications; I48.91 Unspecified atrial fibrillation; Z86.2 Personal history of diseases of the blood and blood-forming organs and certain disorders involving the immune mechanism
CPT/HCPCS: 83036; 85025; 85610; 86803

== ENCOUNTER 2023-10-03 22:24 | Emergency (ER) | payer MEDICARE, OTHER ==
[~2023-10-03] VITALS: Ht 162.6 cm; Wt 89.4 kg
[2023-10-04 02:18] VITALS: BP 135/53
== END 2023-10-04 02:17 | disposition home or self-care (01) ==
LOC: ER 22:24
DX: S00.03XA Contusion of scalp, initial encounter (principal); I48.91 Unspecified atrial fibrillation; E11.9 Type 2 diabetes mellitus without complications; E78.5 Hyperlipidemia, unspecified; I10 Essential (primary) hypertension; G47.30 Sleep apnea, unspecified; J44.9 Chronic obstructive pulmonary disease, unspecified; G89.29 Other chronic pain; M19.90 Unspecified osteoarthritis, unspecified site; I49.5 Sick sinus syndrome; W18.30XA Fall on same level, unspecified, initial encounter; Z88.1 Allergy status to other antibiotic agents; Z88.0 Allergy status to penicillin; Z88.8 Allergy status to other drugs, medicaments and biological substances; Z79.84 Long term (current) use of oral hypoglycemic drugs; Z79.01 Long term (current) use of anticoagulants; Z79.82 Long term (current) use of aspirin; Z79.899 Other long term (current) drug therapy; Z95.0 Presence of cardiac pacemaker; Z87.891 Personal history of nicotine dependence

== ENCOUNTER 2023-11-06 18:34 | Inpatient (IN) | payer MEDICARE, BC, OTHER ==
[~2023-11-06] VITALS: Ht 162.6 cm; Wt 91.2 kg
[2023-11-06 19:20] LABS: BASOPHILS ABSOLUTE AUTO 0.05 K/mm3 (0.00-0.23); BASOPHILS PERCENT AUTO 1 % (0-2); EOSINOPHILS ABSOLUTE AUTO 0.15 K/mm3 (0.00-0.68); EOSINOPHILS PERCENT AUTO 2 % (0-6); Hematocrit 43.4 % (33.0-51.0); Hemoglobin 13.4 g/dL (11.5-16.0); IMMATURE GRAN ABSOLUTE AUTO 0.05 K/mm3 (0.00-0.10); IMMATURE GRAN PERCENT AUTO 1 % (0-1); LYMPHOCYTES ABSOLUTE AUTO 1.07 K/mm3 (0.84-5.20); LYMPHOCYTES PERCENT AUTO 14 % (21-46); MONOCYTES ABSOLUTE AUTO 0.59 K/mm3 (0.16-1.47); MONOCYTES PERCENT AUTO 8 % (4-13); Mean Corpuscular HGB 27.2 pg (26.0-34.0); Mean Corpuscular HGB Conc 30.9 g/dL (31.5-36.5); Mean Corpuscular Volume 88 fL (80-100); Mean Platelet Volume 9.6 fL (9.1-12.4); NEUTROPHILS ABSOLUTE AUTO 5.79 K/mm3 (1.96-9.15); NEUTROPHILS PERCENT AUTO 75 % (41-73); Platelet Count 255 K/mm3 (150-400); RDW Coefficient Variation 15.8 % (11.7-14.2); RDW Standard Deviation 51.3 fL (35.1-46.3); Red Blood Cell Count 4.92 M/mm3 (3.80-5.20)
[2023-11-06 19:30] LABS: Albumin, Blood 3.7 g/dL (3.4-5.0); Albumin/Globulin Ratio 0.8 (0.8-1.8); Bilirubin, Total 0.6 mg/dL (0.1-1.0); Bun/Creatinine Ratio 19.7 (12.0-20.0); Calcium, Blood 9.4 mg/dL (8.5-10.1); Creatinine, Blood 1.22 mg/dL (0.40-1.00); Globulin, Blood 4.4 g/dL (2.2-4.0); Potassium, Blood 4.9 mmol/L (3.5-5.5); Total Protein, Blood 8.1 g/dL (6.4-8.2)
[2023-11-06] MEDS ORDERED: Pregabalin 75 MG Cap PO ONE (20:20)
[2023-11-06] MEDS ORDERED: MAGNESIUM OXID500 MG PO (22:00)
[2023-11-06] MEDS ORDERED: Acetaminophen 325 MG TABLET PO PRN (22:30)
[2023-11-06] MEDS ORDERED: Magnesium Oxide 400 MG Tab PO ONE (23:20)
[2023-11-06] MEDS ORDERED: PARoxetine HCl 20 MG Tab PO ONE (23:20)
[2023-11-07] MEDS ORDERED: Cefepime HCl 2,000 MG in NS 100 ML IV SCH
--- NOTE | 2023-11-07 00:09 | NUR ---
0000- PT ARRIVES TO ROOM IN NO DISTRESS. PT TRANSFERED TO BED ON OWN. PT LISYO STILL RUNNING.
[2023-11-07 00:10] VITALS: BP 151/65
[2023-11-07] MEDS ORDERED: NS 500 ML IV ONE (01:01)
[2023-11-07 05:00] VITALS: BP 112/69
[2023-11-07 05:06] LABS: BASOPHILS ABSOLUTE AUTO 0.04 K/mm3 (0.00-0.23); BASOPHILS PERCENT AUTO 1 % (0-2); EOSINOPHILS ABSOLUTE AUTO 0.15 K/mm3 (0.00-0.68); EOSINOPHILS PERCENT AUTO 2 % (0-6); Hematocrit 38.4 % (33.0-51.0); Hemoglobin 12.3 g/dL (11.5-16.0); IMMATURE GRAN ABSOLUTE AUTO 0.03 K/mm3 (0.00-0.10); IMMATURE GRAN PERCENT AUTO 1 % (0-1); LYMPHOCYTES ABSOLUTE AUTO 0.95 K/mm3 (0.84-5.20); LYMPHOCYTES PERCENT AUTO 15 % (21-46); MONOCYTES PERCENT AUTO 8 % (4-13); Mean Corpuscular HGB 27.9 pg (26.0-34.0); Mean Corpuscular Volume 87 fL (80-100); Mean Platelet Volume 9.8 fL (9.1-12.4); NEUTROPHILS ABSOLUTE AUTO 4.77 K/mm3 (1.96-9.15); NEUTROPHILS PERCENT AUTO 74 % (41-73); Platelet Count 214 K/mm3 (150-400); RDW Coefficient Variation 15.8 % (11.7-14.2); RDW Standard Deviation 50.4 fL (35.1-46.3); Red Blood Cell Count 4.41 M/mm3 (3.80-5.20); White Blood Cell Count 6.44 K/mm3 (4.00-11.30)
[2023-11-07 05:41] LABS: Albumin/Globulin Ratio 0.8 (0.8-1.8); Bilirubin, Total 0.6 mg/dL (0.1-1.0); Bun/Creatinine Ratio 22.2 (12.0-20.0); Calcium, Blood 8.9 mg/dL (8.5-10.1); Creatinine, Blood 1.08 mg/dL (0.40-1.00); Globulin, Blood 3.7 g/dL (2.2-4.0); Potassium, Blood 4.4 mmol/L (3.5-5.5); Total Protein, Blood 6.7 g/dL (6.4-8.2)
[2023-11-07] MEDS ORDERED: CefTRIAXone Sodium 2,000 MG in NS 100 ML IV SCH (06:00)
--- NOTE | 2023-11-07 06:06 | NUR ---
NEON TUBE PUMPER PATIENT IS A&0X4, BLOOD PRESSURES ARE STABLE BUT PULSE IS IN THE 100S. PATIENT IS ON TELE AND RUNNING V PACED. PATIENT HAD VANCO ADMINISTERED UPON ADMISSION BUT COMPLAIN OF MINOR ITCHNESS AND STUFFY NOSE WHEN THE VANCO WAS COMPLETE. WILL CONTINUNE TO MONITOR FOR FURTHER SYMPTOMS. PLAN IS TO HAVE ORTHO CONSULT FOR A POSSIBLE I&D PROCEDURE.
[2023-11-07] MEDS ORDERED: Polyethylene Glycol 3350 17 gm PO PRN (07:20)
[2023-11-07 07:29] VITALS: BP 124/69
[2023-11-07] MEDS ORDERED: Cholecalciferol 1000 Unit Tablet (=25MCG) PO SCH (09:00)
[2023-11-07] MEDS ORDERED: Magnesium Oxide 400 MG Tab PO SCH (09:00)
[2023-11-07] MEDS ORDERED: Famotidine 20 MG Tab PO SCH (09:00)
[2023-11-07] MEDS ORDERED: Lactobacil 2-S.Thermo-Bifido 1 1 Cap PO SCH (09:00)
[2023-11-07] MEDS ORDERED: Atorvastatin 40 MG Tab PO SCH (09:00)
[2023-11-07 14:43] VITALS: BP 117/65
[2023-11-07] MEDS ORDERED: Pregabalin 75 MG Cap PO ONE (18:45)
[2023-11-07 19:26] VITALS: BP 129/57
--- NOTE | 2023-11-07 19:46 | NUR ---
SHIFT SUMMARY PATIENT ALERT AND INTERACTIVE. PATIENT ABLE TO AMBULATE INDEPENDENTLY IN ROOM. PATIENT NPO THROUGHOUT THE DAY FOR POSSIBLE I&D OR AMPUTATION OF INFECTED FINGER. PATIENT STATES THAT SHE FEEL IN SEPTEMBER BUT IS NOT SURE THAT IS WHEN SHE ACTUALLY INJURED IT OR INJURED IT AGAIN AFTER THAT. PATIEN STATES THAT SHE HAS NEUROPATHY IN HER HANDS AND HAS REPEATEDLY BURNED HER HANDS. PATIENT IS A DIABETIC. ORTHO CONSULTED PATIENT THIS EVENING, RE CULTURED FINGER AND NARES CULTURE OBTAINED FOR HX OF MRSA. L INDEX FINGER COVERED WITH A DRY DRESSING AFTER CULTURE DONE. MINIMAL BLEEDING AFTER SLOUGHING SKIN REMOVED BY DR DAY FOR CULTURE.
[2023-11-07] MEDS ORDERED: Docusate Sodium/Senna 1 Tab PO SCH (21:00)
[2023-11-07] MEDS ORDERED: PARoxetine HCl 20 MG Tab PO SCH (21:00)
[2023-11-07] MEDS ORDERED: Vancomycin HCL 1,500 MG in NS 250 ML IV SCH (22:00)
[2023-11-08] VITALS (12 sets, daily range): BP systolic 116–167; BP diastolic 58–83
--- NOTE | 2023-11-08 05:44 | NUR ---
SHIFT SUMMARY PT A&OX4 AND PLEASANT. NO C/O PAIN. PT VERBALIZED ONLY SLIGHT PAIN IN LEFT 2ND INDEX FINGER. DRESSING REAMAINS C/D/I. PT NPO AT MIDNIGHT. IV ABX ADMINISTERED PER EMAR. VSS. BED IN LOWEST POSITION AND CALL LIGHT IN REACH.
[2023-11-08] MEDS ORDERED: NS 500 ML IV SCH (08:25)
[2023-11-08] MEDS ORDERED: Pregabalin 75 MG Cap PO SCH (09:00)
--- NOTE | 2023-11-08 09:06 | NUR ---
DR JAIN ASKING WHO IS CONSULTING. VOICEMAIL FOR DR. DAY. HE CONSULTED LAST NIGHT AND WILL BE OPERATING TODAY. PER DR JAIN: NPO x MEDS.
[2023-11-08] MEDS ORDERED: Lactated Ringer's 1,000 ML IV SCH (09:45)
--- NOTE | 2023-11-08 11:20 | NUR ---
TRANSFER TO DAY SURGERY PT TRANSFERED TO DAY SURGERY FOR AMPUTATION OF L POINTER FINGER.
--- NOTE | 2023-11-08 11:44 | NUR ---
PT HAS 20G IV TO RIGHT AC THAT FLUSHES WELL AND FLOWS TO GRAVITY.
[2023-11-08] MEDS ORDERED: Bupivacaine 0.5% HCl 5 MG/ML 30MLVIAL ONE (12:45)
[2023-11-08] MEDS ORDERED: Ketorolac Tromethamine 30mg Vial ONE (12:52)
[2023-11-08] MEDS ORDERED: Ondansetron HCl 2 MG / ML 2ML Vial ONE (12:52)
[2023-11-08] MEDS ORDERED: propofoL 20 ML IV ONE (12:52)
[2023-11-08] MEDS ORDERED: VISBIOME 112.51 EACH PO (16:09)
[2023-11-08] MEDS ORDERED: MIRALAX17 GM PO (16:09)
[2023-11-08] MEDS ORDERED: DOXY100 PO (16:10)
--- NOTE | 2023-11-08 17:10 | NUR ---
DISCHARGE SUMMARY: A&Ox4. PLEASANT AND COOPERATIVE WITH CARE. 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 FOLLOW-UP WITH DR. JOSEPH NEXT WEEK. NO CONCERNS. LEFT UNIT WITH ALL BELONGINGS AND DISCHARGE PACKET WITH FOR TRANSPORT HOME BY PRIVATELY OWNED VEHICLE.
== END 2023-11-08 17:12 | disposition home or self-care (01) | DRG 988 ==
LOC: ER 18:34 → MEDS 22:29
PROVIDERS: Family Medicine Adult Medicine; Physician Assistant; ADMIT Student in an Organized Health Care Education/Training Program
PROC: 0X6P0Z2 Detachment at Left Index Finger, Mid, Open Approach (ICD-10-PCS; principal; 2023-11-07)
PROC: 0PBV0ZX Excision of Left Finger Phalanx, Open Approach, Diagnostic (ICD-10-PCS; 2023-11-07)
DX: E11.69 Type 2 diabetes mellitus with other specified complication (principal); D84.9 Immunodeficiency, unspecified; I50.32 Chronic diastolic (congestive) heart failure; M86.8X4 Other osteomyelitis, hand; E11.628 Type 2 diabetes mellitus with other skin complications; L03.012 Cellulitis of left finger; S62.605A Fracture of unspecified phalanx of left ring finger, initial encounter for closed fracture; S69.92XA Unspecified injury of left wrist, hand and finger(s), initial encounter; I48.91 Unspecified atrial fibrillation; E11.9 Type 2 diabetes mellitus without complications; E78.5 Hyperlipidemia, unspecified; I10 Essential (primary) hypertension; J44.9 Chronic obstructive pulmonary disease, unspecified; M54.9 Dorsalgia, unspecified; G89.29 Other chronic pain; M19.90 Unspecified osteoarthritis, unspecified site; G47.30 Sleep apnea, unspecified; I49.5 Sick sinus syndrome; I11.0 Hypertensive heart disease with heart failure; F32.A Depression, unspecified; E11.40 Type 2 diabetes mellitus with diabetic neuropathy, unspecified; M89.542 Osteolysis, left hand; B95.62 Methicillin resistant Staphylococcus aureus infection as the cause of diseases classified elsewhere; Z90.710 Acquired absence of both cervix and uterus; Z98.84 Bariatric surgery status; Z98.890 Other specified postprocedural states; Z95.0 Presence of cardiac pacemaker; Z90.89 Acquired absence of other organs; Z87.891 Personal history of nicotine dependence; Z88.0 Allergy status to penicillin; Z88.8 Allergy status to other drugs, medicaments and biological substances; Z88.1 Allergy status to other antibiotic agents; Z88.5 Allergy status to narcotic agent; Z79.01 Long term (current) use of anticoagulants; Z79.899 Other long term (current) drug therapy
CPT/HCPCS: 36415; 80053; 82947; 85025; 85651; 86140; 87070; 87075; 87077; 87147; 87186; 87205; 88305; 88311; 93005; 93010; 99285-25; A9270; J0692; J0696; J1885; J2405; J2704; J3370; J7040; J7050; J7120

== ENCOUNTER 2024-07-08 01:55 | Inpatient (IN) | payer MEDICARE, OTHER ==
[~2024-07-08] VITALS: Ht 162.6 cm; Wt 86.5 kg
[~2024-07-08 01:55] MED LIST changes: +DOXY100 PO; +MIRALAX17 GM PO; +VISBIOME 112.51 EACH PO
[2024-07-08 03:16] LABS: BASOPHILS ABSOLUTE AUTO 0.04 K/mm3 (0.00-0.23); BASOPHILS PERCENT AUTO 1 % (0-2); EOSINOPHILS ABSOLUTE AUTO 0.08 K/mm3 (0.00-0.68); EOSINOPHILS PERCENT AUTO 1 % (0-6); Hematocrit 38.2 % (33.0-51.0); Hemoglobin 11.8 g/dL (11.5-16.0); IMMATURE GRAN ABSOLUTE AUTO 0.04 K/mm3 (0.00-0.10); IMMATURE GRAN PERCENT AUTO 1 % (0-1); LYMPHOCYTES PERCENT AUTO 7 % (21-46); MONOCYTES ABSOLUTE AUTO 0.62 K/mm3 (0.16-1.47); MONOCYTES PERCENT AUTO 8 % (4-13); Mean Corpuscular HGB Conc 30.9 g/dL (31.5-36.5); Mean Corpuscular Volume 87 fL (80-100); Mean Platelet Volume 9.8 fL (9.1-12.4); NEUTROPHILS PERCENT AUTO 83 % (41-73); Platelet Count 193 K/mm3 (150-400); RDW Coefficient Variation 15.7 % (11.7-14.2); RDW Standard Deviation 49.9 fL (35.1-46.3); Red Blood Cell Count 4.37 M/mm3 (3.80-5.20); White Blood Cell Count 8.08 K/mm3 (4.00-11.30)
[2024-07-08 03:37] LABS: Albumin, Blood 3.3 g/dL (3.4-5.0); Albumin/Globulin Ratio 0.8 (0.8-1.8); Bilirubin, Total 1.4 mg/dL (0.1-1.0); Bun/Creatinine Ratio 22.1 (12.0-20.0); Calcium, Blood 8.8 mg/dL (8.5-10.1); Creatinine, Blood 1.04 mg/dL (0.40-1.00); Globulin, Blood 4.1 g/dL (2.2-4.0); Potassium, Blood 4.6 mmol/L (3.5-5.5); Total Protein, Blood 7.4 g/dL (6.4-8.2)
[2024-07-08] MEDS ORDERED: CefTRIAXone Sodium 1,000 MG in NS 50 ML IV ONE (03:50)
[2024-07-08] MEDS ORDERED: FLU VACC TS2024-25(6MOS UP)/PF 45 MCG/0.5 ML SYRINGE IM ONE (05:25)
[2024-07-08] MEDS ORDERED: Ipratropium/Albuterol SulF 2.5-0.5MG/3 ML Amp INH PRN (06:05)
[2024-07-08 06:12] LABS: International Normalized Ratio 1.55; Prothrombin Time Results 16.1 Sec (9.7-11.5)
[2024-07-08 06:22] LABS: CHOL/HDL RATIO 1.5; Cholesterol 63 mg/dL (50-200); HDL Cholesterol 41 mg/dL (>39); LDL/HDL RATIO 0.1; Low Density Lipoprotein Chol 5 mg/dL (0-110); Triglycerides 87 mg/dL (30-160); Very Low Density Lipoprot Chol 17 mg/dL (6-32)
[2024-07-08] MEDS ORDERED: Doxycycline Hyclate 100 MG in Dextrose 5% 250 ML IV SCH (06:28)
[2024-07-08] MEDS ORDERED: Furosemide 10 MG/ML 4ML Vial IV ONE (07:00)
[2024-07-08] MEDS ORDERED: Insulin Human Lispro 100 Units/ML 3ML Syringe SC SCH (07:30)
[2024-07-08 07:37] LABS: Influenza A, PCR NEGATIVE (NEGATIVE); Influenza B, PCR NEGATIVE (NEGATIVE); Resp Syncytial Virus, PCR NEGATIVE (NEGATIVE); SARS-Cov-2 (COVID-19) PCR, MMC NEGATIVE (NEGATIVE)
[2024-07-08] MEDS ORDERED: Warfarin Sodium 5 MG Tab PO ONE (12:40)
[2024-07-08] MEDS ORDERED: NS 1,000 ML IV SCH (13:45)
[2024-07-08] MEDS ORDERED: OXYC5 PO (13:48)
[2024-07-08 14:34] VITALS: BP 148/73
[2024-07-08] MEDS ORDERED: PANT40 PO (15:32)
[2024-07-08 15:43] VITALS: BP 135/54
--- NOTE | 2024-07-08 15:44 | NUR ---
Pt. is resting in bed, but responds when this supervisor dock enters the room. Pt. is pleasant. Facilitated a life review. Pt. verbalizes that she has spent alot of time in the hospital in the past. Listen with empathy and a calming presence. Pt. verbalizes that her spiritual life is vary personal, and she finds comfort in paying to God daily. Listen with a marketing sales consultant's perspective. Pt. also verbalizes that she has a supportive family. Prayed with Pt. Pt. verbalized gratitude for the spiritual care visit and welcomed this supervisor dock to return.
--- NOTE | 2024-07-08 17:03 | NUR ---
MET WITH PATIENT AND HER . REFERED TO SON FOR DECISIONS. PATIENT REPORTED SHE WAS EXHAUSTED AND WANTED TO CONTINUE CONVERSATION ANOTHER TIME. CALLED PATIENTS SON DRU. HE REPORTED THAT THEY HAVE NOT UPDATED THE POLST OF AD THAT WE HAVE ON FILE. BOTH INDICATED FULL CODE AND TREATMENT. HE AGREED WITH THIS. CALLED PROVIDER AND CHANGED CODE STATUS
[2024-07-08] MEDS ORDERED: Warfarin Sodium 5 MG Tab PO SCH (18:00)
--- NOTE | 2024-07-08 18:41 | NUR ---
PATIENT IS ALERT AND ORIENTED AND COOPERATIVE WITH CARE.ON 4L O2 VIA NC. 1PA TO THE BATHROOM. C/O CHRONIC BACK PAIN, HEATING PAD IN PLACE. WAS AT THE BEDSIDE THIS AFTERNOON, PLANS ON STAYING THE NIGHT HERE. VSS. WILL CONTINUE TO MONITOR
[2024-07-08 19:46] VITALS: BP 124/57
[2024-07-09 00:52] VITALS: BP 130/57
[2024-07-09 03:50] VITALS: BP 142/63
--- NOTE | 2024-07-09 04:41 | NUR ---
SHIFT SUMMARY: PT AOX4 PLEASANT BUT VERY TIRED. SLEPT THROUGH MOST OF THE SHIFT. WEENED DOWN TO 2L SATTING 94. HAS HAD SOME BRADYCARDIA OCCASIONALLY DIPPING DOWN TO 55 BUT PT IS ASSYMPTOMATIC, WHILE AWAKE, COMPLETELY ORIENTED. TOLERATING MEDICATIONS WELL. NO ACUTE EVENTS OVERNIGHT. AT BEDSIDE ANXIOUS ABOUT HER NOT TAKING HER MEDICATIONS BUT VERY PLEASANT. PT IS SLEEPING IN BED, BED IN LOWEST POSITION, CALL LIGHT IN REACH. CONTINUING CARE.
[2024-07-09 05:03] LABS: BASOPHILS ABSOLUTE AUTO 0.03 K/mm3 (0.00-0.23); BASOPHILS PERCENT AUTO 1 % (0-2); EOSINOPHILS ABSOLUTE AUTO 0.11 K/mm3 (0.00-0.68); EOSINOPHILS PERCENT AUTO 3 % (0-6); Hematocrit 33.4 % (33.0-51.0); Hemoglobin 10.5 g/dL (11.5-16.0); IMMATURE GRAN ABSOLUTE AUTO 0.01 K/mm3 (0.00-0.10); IMMATURE GRAN PERCENT AUTO 0 % (0-1); LYMPHOCYTES ABSOLUTE AUTO 0.81 K/mm3 (0.84-5.20); LYMPHOCYTES PERCENT AUTO 19 % (21-46); MONOCYTES ABSOLUTE AUTO 0.42 K/mm3 (0.16-1.47); MONOCYTES PERCENT AUTO 10 % (4-13); Mean Corpuscular HGB 27.1 pg (26.0-34.0); Mean Corpuscular HGB Conc 31.4 g/dL (31.5-36.5); Mean Corpuscular Volume 86 fL (80-100); Mean Platelet Volume 10.2 fL (9.1-12.4); NEUTROPHILS ABSOLUTE AUTO 2.87 K/mm3 (1.96-9.15); NEUTROPHILS PERCENT AUTO 68 % (41-73); Platelet Count 157 K/mm3 (150-400); RDW Coefficient Variation 15.8 % (11.7-14.2); RDW Standard Deviation 49.1 fL (35.1-46.3); Red Blood Cell Count 3.88 M/mm3 (3.80-5.20); White Blood Cell Count 4.25 K/mm3 (4.00-11.30)
[2024-07-09 05:18] LABS: International Normalized Ratio 1.49; Prothrombin Time Results 15.5 Sec (9.7-11.5)
[2024-07-09] MEDS ORDERED: CefTRIAXone Sodium 1,000 MG in NS 100 ML IV SCH (06:00)
[2024-07-09 06:17] LABS: Albumin/Globulin Ratio 0.9 (0.8-1.8); Bun/Creatinine Ratio 20.9 (12.0-20.0); C-REACTIVE PROTEIN, EXT RANGE 4.97 mg/dL (0.000-0.300); Calcium, Blood 8.8 mg/dL (8.5-10.1); Creatinine, Blood 0.91 mg/dL (0.40-1.00); Globulin, Blood 3.5 g/dL (2.2-4.0); Magnesium, Blood 2.1 mg/dL (1.6-2.4); Potassium, Blood 3.8 mmol/L (3.5-5.5); Thyroid Stimulating Hormone 1.97 uIU/mL (0.360-4.800); Total Protein, Blood 6.5 g/dL (6.4-8.2)
[2024-07-09 07:29] VITALS: BP 138/68
[2024-07-09] MEDS ORDERED: OxyCODONE HCL 5 MG TAB PO PRN (08:00)
[2024-07-09] MEDS ORDERED: Potassium Chloride 10 Meq Tablet SA PO SCH (09:00)
[2024-07-09] MEDS ORDERED: Furosemide 10 MG/ML 4ML Vial IV SCH (09:00)
[2024-07-09] MEDS ORDERED: Cholecalciferol 1000 Unit Tablet (=25MCG) PO SCH (09:00)
[2024-07-09] MEDS ORDERED: Lactobacil 2-S.Thermo-Bifido 1 1 Cap PO SCH (09:00)
[2024-07-09] MEDS ORDERED: Empagliflozin 25 MG TAB PO SCH (09:00)
[2024-07-09] MEDS ORDERED: Famotidine 20 MG Tab PO SCH (09:00)
[2024-07-09] MEDS ORDERED: Atorvastatin 40 MG Tab PO SCH (09:00)
[2024-07-09] MEDS ORDERED: Pregabalin 75 MG Cap PO SCH (09:00)
[2024-07-09] MEDS ORDERED: Magnesium Oxide 400 MG Tab PO SCH (09:00)
[2024-07-09 11:45] VITALS: BP 139/63
[2024-07-09] MEDS ORDERED: Enoxaparin 80 MG/0.8 ML SYR SC SCH (12:00)
[2024-07-09 15:37] VITALS: BP 132/58
--- NOTE | 2024-07-09 17:44 | NUR ---
SHIFT SUMMARY MS GLASS IS OX4. SHE IS ON CONTINUOUS PULSE OX AND HAS HAD PERIODS OF TIME ON ROOM AIR IN THE 90S, SOMETIMES REQUIRING OXYGEN 1.5L NC. SHE HAS DENIED FEELING SHORT OF BREATH. LOWER BACK ACHE, NO OTHER C/O PAIN. ON TELEMETRY PACED AT 60, NO CALLS FROM [employer]. UP TO BATHROOM WITH STAND-BY ASSISTANCE. ENCOURAGED TO WALK AND SIT IN THE CHAIR; SHE DID WALK WITH PHYSICAL THERAPY AND TO THE BATHROOM. BED LOW, CALL LIGHT IN REACH.
[2024-07-09] MEDS ORDERED: Warfarin Sodium 7.5 MG Tab PO SCH (18:00)
[2024-07-09 20:11] VITALS: BP 130/75
[2024-07-09] MEDS ORDERED: PARoxetine HCl 20 MG Tab PO SCH (21:00)
[2024-07-10 00:12] VITALS: BP 142/85
[2024-07-10 04:13] VITALS: BP 129/61
--- NOTE | 2024-07-10 04:18 | NUR ---
SHIFT SUMMARY. NO ACUTE CHANGES OVERNIGHT. PATIENT SATTING IN THE LOW TO MID 90'S ON RA-PATIENT DESATTED INTO THE HIGH 80'S BUT QUICKLY RECOVERED WITH 1/2 LPM VIA NASAL CANNULA. PATIENT RESTED OFF AND ON T/O NIGHT WITH AT BEDSIDE. PATIENT REPORTS THAT SHE IS FEELING "A LOT BETTER THAN WHEN I CAME IN". PULSE OXOMETER FINGER PROB CHANGED THIS AM. BED IS LOCKED IN THE LOWEST POSITION WITH CALL LIGHT IN REACH. CARE IS ONGOING.
[2024-07-10 05:27] LABS: BASOPHILS ABSOLUTE AUTO 0.03 K/mm3 (0.00-0.23); BASOPHILS PERCENT AUTO 1 % (0-2); EOSINOPHILS ABSOLUTE AUTO 0.11 K/mm3 (0.00-0.68); EOSINOPHILS PERCENT AUTO 2 % (0-6); Hematocrit 34.9 % (33.0-51.0); IMMATURE GRAN ABSOLUTE AUTO 0.01 K/mm3 (0.00-0.10); IMMATURE GRAN PERCENT AUTO 0 % (0-1); LYMPHOCYTES ABSOLUTE AUTO 0.93 K/mm3 (0.84-5.20); LYMPHOCYTES PERCENT AUTO 20 % (21-46); MONOCYTES ABSOLUTE AUTO 0.42 K/mm3 (0.16-1.47); MONOCYTES PERCENT AUTO 9 % (4-13); Mean Corpuscular HGB 27.3 pg (26.0-34.0); Mean Corpuscular HGB Conc 31.5 g/dL (31.5-36.5); Mean Corpuscular Volume 87 fL (80-100); Mean Platelet Volume 10.5 fL (9.1-12.4); NEUTROPHILS ABSOLUTE AUTO 3.07 K/mm3 (1.96-9.15); NEUTROPHILS PERCENT AUTO 67 % (41-73); Platelet Count 179 K/mm3 (150-400); RDW Coefficient Variation 15.6 % (11.7-14.2); Red Blood Cell Count 4.03 M/mm3 (3.80-5.20); White Blood Cell Count 4.57 K/mm3 (4.00-11.30)
[2024-07-10 05:40] LABS: International Normalized Ratio 1.45; Prothrombin Time Results 15.1 Sec (9.7-11.5)
[2024-07-10] MEDS ORDERED: Pantoprazole Sodium 40 MG Tab PO SCH (06:00)
[2024-07-10 06:06] LABS: Alanine Aminotransfer (ALT/SGP 24 U/L (12-78); Albumin, Blood 3.2 g/dL (3.4-5.0); Albumin/Globulin Ratio 0.9 (0.8-1.8); Alk Phos 84 U/L (50-136); Anion Gap 10 mmol/L (3-11); Aspartate Aminotrans (AST/SGOT 16 U/L (12-37); Bilirubin, Total 0.8 mg/dL (0.1-1.0); Blood Urea Nitrogen 19 mg/dL (8-24); Bun/Creatinine Ratio 21.6 (12.0-20.0); CO2, Blood 27 mmol/L (21-32); Calcium, Blood 8.8 mg/dL (8.5-10.1); Chloride, Blood 107 mmol/L (98-108); Creatinine, Blood 0.88 mg/dL (0.40-1.00); Digoxin (Lanoxin) 0.45 ug/mL (0.80-2.00); Ferritin, Serum 210 ng/mL (8-252); Globulin, Blood 3.7 g/dL (2.2-4.0); Glomerular Filtration Rate 70 (60-); Glucose, Blood 136 mg/dL (70-99); Iron Serum 41 ug/dL (50-170); Percent Saturation 14.3 % (15.0-50.0); Potassium, Blood 3.4 mmol/L (3.5-5.5); Sodium, Blood 141 mmol/L (136-145); Total Iron Binding Capacity 286 ug/dL (250-450); Total Protein, Blood 6.9 g/dL (6.4-8.2)
[2024-07-10 07:18] VITALS: BP 163/76
[2024-07-10] MEDS ORDERED: Spironolactone 25 MG Tab PO SCH (09:00)
--- NOTE | 2024-07-10 09:00 | NUR ---
pt laying in bed awake, a/ox4, pleasant and cooperative with care, follows commands well, denies pain, states she's feeling better, lungs are clear with some fine crackles to bases, rub noted on inspiration, currently on 1 liter o2 via n/c, she desats to mid 80's with any activity, recovers well, hrirr, tele in place running afib, and is v paced, no edema noted, ppp+1, cap refill <3 sec, vs stable, afebrile, piv to lac, site is clear and patent, btx4, voids via bsc, sba, is getting herself to bsc without diff, skin c/w/d, clay poon, call light in reach.
[2024-07-10 11:38] VITALS: BP 158/81
[2024-07-10] MEDS ORDERED: METO50ER PO (13:19)
[2024-07-10] MEDS ORDERED: SPIR25 PO (13:23)
--- NOTE | 2024-07-10 14:55 | NUR ---
assumed care and set up discharge. very pleasent pt who stated she and MD spoke about her coumidin dosages. i told pt to just do what MD said to do and bring discharge paper work to [facility]. iv dced and pt taken via wheelchair.
== END 2024-07-10 14:41 | disposition home or self-care (01) | DRG 193 ==
LOC: ER 01:55 → MEDS 03:56 → ERHOLD 03:56 → MEDS 13:15 → ENPENDDIS 07-10 12:03 → MEDS 07-10 14:41
PROVIDERS: Emergency Medicine; Hospitalist; Student in an Organized Health Care Education/Training Program; ADMIT Internal Medicine
DX: J18.9 Pneumonia, unspecified organism (principal); I50.33 Acute on chronic diastolic (congestive) heart failure; J96.01 Acute respiratory failure with hypoxia; I13.0 Hypertensive heart and chronic kidney disease with heart failure and stage 1 through stage 4 chronic kidney disease, or unspecified chronic kidney disease; J44.0 Chronic obstructive pulmonary disease with (acute) lower respiratory infection; I48.19 Other persistent atrial fibrillation; M54.9 Dorsalgia, unspecified; G89.29 Other chronic pain; Z66 Do not resuscitate; E11.22 Type 2 diabetes mellitus with diabetic chronic kidney disease; N18.31 Chronic kidney disease, stage 3a; F32.9 Major depressive disorder, single episode, unspecified; E78.5 Hyperlipidemia, unspecified; Z88.0 Allergy status to penicillin; Z88.8 Allergy status to other drugs, medicaments and biological substances; Z88.1 Allergy status to other antibiotic agents; Z79.84 Long term (current) use of oral hypoglycemic drugs; Z79.899 Other long term (current) drug therapy; Z79.01 Long term (current) use of anticoagulants; M19.90 Unspecified osteoarthritis, unspecified site; Z95.0 Presence of cardiac pacemaker; I49.5 Sick sinus syndrome; Z90.710 Acquired absence of both cervix and uterus; Z98.84 Bariatric surgery status; Z90.49 Acquired absence of other specified parts of digestive tract; Z98.890 Other specified postprocedural states; Z87.891 Personal history of nicotine dependence
CPT/HCPCS: 0241U; 36415; 71046; 71260; 74177; 76705; 80053; 80061; 80162; 82728; 82947; 83540; 83550; 83605; 83690; 83735; 83880; 84100; 84145; 84443; 84484; 85025; 85379; 85610; 85651; 86140; 93005; 93010; 93306; 94760; 94762; 96374; 97116; 97162; 99285-25; A9270; J0696; J1650; J1940; J7030; J7060; Q9967

== ENCOUNTER 2024-09-11 19:10 | Emergency (ER) | payer MEDICARE, OTHER ==
[~2024-09-11] VITALS: Ht 162.6 cm; Wt 81.7 kg
[~2024-09-11 19:10] MED LIST changes: +PROBIOTIC1 EA13 PO; +SPIR25 PO
[2024-09-11 21:01] VITALS: BP 129/67
== END 2024-09-11 21:05 | disposition home or self-care (01) ==
LOC: ER 19:10
DX: M79.89 Other specified soft tissue disorders (principal); M25.561 Pain in right knee; I48.91 Unspecified atrial fibrillation; E11.9 Type 2 diabetes mellitus without complications; I11.0 Hypertensive heart disease with heart failure; I50.9 Heart failure, unspecified; G47.30 Sleep apnea, unspecified; J44.9 Chronic obstructive pulmonary disease, unspecified; M19.90 Unspecified osteoarthritis, unspecified site; Z87.891 Personal history of nicotine dependence; Z79.899 Other long term (current) drug therapy; Z79.01 Long term (current) use of anticoagulants; Z88.0 Allergy status to penicillin; Z88.1 Allergy status to other antibiotic agents; Z88.8 Allergy status to other drugs, medicaments and biological substances
CPT/HCPCS: 73562-RT; 99283-25

== ENCOUNTER → 2025-04-03 | Outpatient (CLI) | payer MEDICARE, OTHER | END | disposition home or self-care (01) | LOC: LAB SHORT 20:30 → LAB 20:30 | DX: E11.69 Type 2 diabetes mellitus with other specified complication (principal) | CPT/HCPCS: 82043 ==